=== PATIENT | male | born 1955 | race Caucasian/White ===

== ENCOUNTER 2022-07-07 08:43 | Inpatient (IN) | payer OTHER ==
[~2022-07-07] VITALS: Ht 165.1 cm; Wt 68.0 kg
--- NOTE | 2022-07-07 08:59 | NUR ---
C/O SOB, CHILLS, AND HEADACHE SINCE LAST NIGHT. BREATHING EVEN AND UNLABORED. AMBULATED TO BED WITH STEADY GAIT. AAOX4. CONNECTED TO MONITOR. VITAL SIGNS STABLE. SAFETY PRECAUTIONS IN PLACE. AWAITING MD ORDERS.
--- NOTE | 2022-07-07 09:10 | NUR ---
AT BEDSIDE FOR EVAL
[2022-07-07] MEDS ORDERED: METOPROLOL TARTRATE INJ 5 MG/5 ML AMPUL ONE (09:24)
[2022-07-07] MEDS ORDERED: CARVEDILOL 3.125 MG TABLET ONE (09:24)
[2022-07-07 09:29] LABS: BASOPHILS % (AUTO) 0.5 % (0.0-2.0); EOSINOPHILS % (AUTO) 1.5 % (0.0-6.0); HEMATOCRIT 39 % (39-51); HEMOGLOBIN 12.6 g/dL (13.5-17.5); LYMPHOCYTES # (AUTO) 1.5 K/uL (0.8-4.8); MEAN CORPUSCULAR HGB CONC 33 g/dl (31.0-36.0); MEAN CORPUSCULAR VOLUME 92 fL (80-96); MONOCYTES # (AUTO) 0.3 K/uL (0.1-1.30); MONOCYTES % (AUTO) 4.1 % (2.0-12.0); NEUTROPHILS % (AUTO) 74.9 % (43.0-81.0); PLATELET COUNT (AUTO) 322 K/uL (150-450)
[2022-07-07] MEDS ORDERED: METOPROLOL TARTRATE INJ 5 MG/5 ML AMPUL IV ONE (09:30)
[2022-07-07] MEDS ORDERED: IV NS 0.9% 1,000 ML IV ONE (09:30)
[2022-07-07] MEDS ORDERED: CARVEDILOL 3.125 MG TABLET PO ONE (09:30)
[2022-07-07 09:38] LABS: CALCIUM, SERUM 8.9 mg/dL (8.5-10.1); CARBON DIOXIDE 19 mmol/L (21-32); CHLORIDE 106 mmol/L (98-107); CREATININE 1.6 mg/dL (0.6-1.3); GLUCOSE 171 mg/dL (74-106); POTASSIUM 4.2 mmol/L (3.5-5.1); SODIUM SERUM 135 mmol/L (136-145); UREA NITROGEN, BLOOD 30 mg/dL (7-18)
[2022-07-07] MEDS ORDERED: LISI10TA29 PO (09:42)
[2022-07-07] MEDS ORDERED: CARV3.122 PO (09:42)
--- NOTE | 2022-07-07 09:43 | NUR ---
FLUIDS RUNNING AND MEDICATED ORDERED.
--- NOTE | 2022-07-07 09:45 | NUR ---
PT TAKEN TO CT VIA CARLOS
[2022-07-07 09:52] LABS: ALANINE AMINOTRANSFERASE 48 U/L (12-78); ALBUMIN 3.3 g/dL (3.4-5.0); ALKALINE PHOSPHATASE 102 U/L (46-116); ASPARTATE AMINOTRANSFERASE 18 U/L (15-37); BILIRUBIN,DIRECT 0.3 mg/dL (0.0-0.2); BILIRUBIN,TOTAL 1.1 mg/dL (0.2-1.0); TOTAL PROTEIN, SERUM 7.7 g/dL (6.4-8.2)
--- NOTE | 2022-07-07 10:11 | NUR ---
PT RETURNED FROM CT
--- NOTE | 2022-07-07 10:40 | NUR ---
PT IN ROOM CALM BREATHING IS EVEN AND NON-LABORED. DENIES SOB OR CHEST PAIN. PT CONTUNES TO BE IN UNCONTROLED AFIB.
[2022-07-07] MEDS ORDERED: MIDODRINE HCL (5MG) 5 MG TABLET PO STA (10:54)
[2022-07-07] MEDS ORDERED: DILTIAZEM HCL 50 MG IV IV ONE (11:00)
[2022-07-07] MEDS ORDERED: DILTIAZEM HCL 50 MG IV ONE (11:03)
[2022-07-07] MEDS ORDERED: MIDODRINE HCL (5MG) 5 MG TABLET ONE (11:03)
--- NOTE | 2022-07-07 11:30 | NUR ---
MOVE SHEET SUBMITTED.
--- NOTE | 2022-07-07 11:36 | NUR ---
PT GIVE PERSCRIBED DOSE OF CARDIZEM TO CONTROL A-FIB GIVE WITH A SLOW PUSH. PT VOMITED SHORTLY AFTER WHILE MIDICINE WAS TAKING EFFECT. VITALS STABLIZED A FIB NOW CONTROLED HR94, 97/70, 97% OTSAT, RESP 18 DOES NOT ENDORSE ANY PAIN.
--- NOTE | 2022-07-07 12:17 | NUR ---
covid swab taken and sent to lab.
[2022-07-07] MEDS ORDERED: DILTIAZEM HCL IV 125 MG in IV NS 0.9% 100 ML IV PRN (12:30)
--- NOTE | 2022-07-07 12:47 | NUR ---
Accepted for admissiopn by Dr. Ac Landry MD at [facility]
[2022-07-07] MEDS ORDERED: ACETAMINOPHEN 325 MG TABLET PO PRN (17:30)
[2022-07-07] MEDS ORDERED: MORPHINE SULFATE INJ 2 MG/ML DISP.SYRIN IV PRN (17:30)
[2022-07-07] MEDS ORDERED: HYDROCODONE/APAP 5/325MG TABLET PO PRN (17:30)
[2022-07-07] MEDS ORDERED: Z GUARD REMEDY 4 OZ OINT TP PRN (17:30)
[2022-07-07] MEDS ORDERED: MAG HYDROX/AL HYDROX/SIMETH 30 ML UDC PO PRN (17:30)
[2022-07-07] MEDS ORDERED: MAGNESIUM HYDROXIDE 30 ML UDC PO PRN (17:30)
[2022-07-07] MEDS ORDERED: ENOXAPARIN SODIUM 40 MG/0.4 ML DISP.SYRIN SQ SCH (17:30)
--- NOTE | 2022-07-07 17:47 | NUR ---
HANDOFF REPORT GIVEN TO CARLOS MANUEL RUBY
--- NOTE | 2022-07-07 18:15 | NUR ---
"FLORI NOTES - PAIN MEDICATION | CONDOM CATH | PM CARE PATIENT IS ANXIOUS ABOUT POSSIBLE PAIN DURING PERICARE AND BED CHANGE, GIVEN KETOROLAC 30 MG VIA IV ORDERED, CHANGED CONDOM CATH AND CHANGED REPLACED BEDSHEETS, PATIENT WAS ABLE TO TOLERATE TURNING AND REPOSITIONING Addendum: 07/07/22 at 1935 by SHANEKA WATTS RN WRONG PATIENT"
[2022-07-07 18:25] VITALS: BP 110/66
--- NOTE | 2022-07-07 18:46 | NUR ---
PT TRANSFER TO ROOM 313 ACLS PROTOCAL
[2022-07-07] MEDS ORDERED: AMIODARONE 150 MG in IV D5W 100 ML IV ONE (19:00)
--- NOTE | 2022-07-07 19:05 | NUR ---
RN NOTE 67 YEAR OLD MALE PATIENT CAME FROM AND WAS TRANSMITTED VIA WHEELCHAIR, HAND OFF GIVEN BY JORDON HOROWITZ X4, GHANAIAN SPEAKING, O2 VIA NC AT 2L, NO SOB/DISTRESS NOTED. ON TELE MONITOR WITH CURRENT READING OF UNCONTROLLED AFIB, HR 131. SKIN ASSESSMENT DONE, UROSTOMY NOTED ON LEFT LOWER ABDOMENT. NO OTHER WOUNDS NOTED. SAFETY MEASURES IN PLACE: CALL LIGHT WITHIN REACH, SIDE RAILS UP X2, BED LOCKED AND IN LOWEST POSITION, BED ALARM ON.
--- NOTE | 2022-07-07 19:15 | NUR ---
REHABILITATION INSPECTOR NOTES - PT WAS TRANSFERRED FROM ER BY 2 LOCKSTITCH BACK MAKER VIA [facility], SEEN PT IN BED AT 1824 WITH HOB ELEVATED, PT IS AOX4, MONEGASQUE SPEAKING, NOT IN ANY FORM OF DISTRESS, ON TELE MONITORING WITH CURRENT READING OF UNCONTROLLED AFIB WITH 130S HR, BP-110/66, SPO2 OF 99% WITH O2 @2LPM VIA [place], T- 98.5. SHORTLY AFTER, PHARMACY CALLED TO VERIFY CARDIZEM DRIP, ADVISED WE DONT DO DRIP HERE, CHECKED WITH CHARGE NURSE AND CHANA CAMACHO, GILLIAN- PROVIDER, ORDERED TO TRANSFER THE PATIENT TO [facility] ROOM 110 - TRANSFERRED PT IMMEDIATELY TO [facility] FOLLOWING ACLS PROTOCOL - HAND OFF GIVEN TO NURSE MURRAY AND CHARGE NURSE AT 1900. AND CHARGE NURSE AWARE.
[2022-07-07 20:00] VITALS: BP 114/70
[2022-07-07] MEDS ORDERED: TEMAZEPAM 15 MG CAPSULE PO PRN (20:00)
[2022-07-07] MEDS: AMIODARONE 450 MG in IV D5W 241 ML IV PRN (20:33)
--- NOTE | 2022-07-07 20:35 | NUR ---
RN NOTE PATIENT STARTED ON AMIO DRIP AT 1 MG/MIN X 6 HOURS = 33.3 ML/HR X 6 HOURS.
[2022-07-07] MEDS: ONDANSETRON HCL/PF 4 MG/2 ML VIAL IVP PRN (23:37)
--- NOTE | 2022-07-07 23:55 | NUR ---
RN NOTE PATIENT'S BLOOD PRESSURE IS 80/60 AND HAD EMESIS OF 200 ML. ADMINISTERED ZOFRAN 4MG. MADE AWARE.
--- NOTE | 2022-07-07 23:58 | NUR ---
RN NOTES: PT'S BLOOD PRESSURE 80/60, PULSE-108. NEAL PALM VISITED THE PT. ORDER- NS 500ML BOLUS AND MG 1 GM. NOTED AND CARRIED OUT. HAD ONE EPISODE OF V-TACH. SHOWED TO DR. BILLINGSLEY.
[2022-07-08] VITALS (7 sets, daily range): BP systolic 79–123; BP diastolic 53–71
[2022-07-08] MEDS ORDERED: Magnesium 1GM/D5W 100ML PREMIX 100 ML IV SCH (00:30)
[2022-07-08] MEDS ORDERED: IV NS 0.9% 500 ML IV ONE (00:30)
[2022-07-08 01:21] LABS: CALCIUM, SERUM 8.4 mg/dL (8.5-10.1); CREATININE 1.7 mg/dL (0.6-1.3); MAGNESIUM 2.4 mg/dL (1.8-2.4)
--- NOTE | 2022-07-08 02:36 | NUR ---
RN NOTE TITRATED AMIO DRIP TO 0.5 MG/MIN X 18 HOURS = 16.6 ML/HR X 18 HOURS.
[2022-07-08] MEDS: AMIODARONE 450 MG in IV D5W 241 ML IV PRN (05:06)
[2022-07-08 05:58] LABS: BASOPHILS % (AUTO) 0.1 % (0.0-2.0); HEMATOCRIT 42 % (39-51); HEMOGLOBIN 12.8 g/dL (13.5-17.5); LYMPHOCYTES # (AUTO) 1.2 K/uL (0.8-4.8); LYMPHOCYTES % (AUTO) 10.8 % (20.0-44.0); MEAN CORPUSCULAR HGB CONC 31 g/dl (31.0-36.0); MEAN CORPUSCULAR VOLUME 98 fL (80-96); MONOCYTES # (AUTO) 0.8 K/uL (0.1-1.30); MONOCYTES % (AUTO) 7.3 % (2.0-12.0); NEUTROPHILS # (AUTO) 9.1 K/uL (1.8-8.9); NEUTROPHILS % (AUTO) 81.8 % (43.0-81.0); PLATELET COUNT (AUTO) 252 K/uL (150-450); RED BLOOD CELL COUNT(AUTO) 4.24 MIL/uL (4.5-6.0); WHITE BLOOD COUNT (AUTO) 11.1 K/uL (4.3-11.0)
[2022-07-08 06:32] LABS: CALCIUM, SERUM 8.5 mg/dL (8.5-10.1); CREATININE 2.1 mg/dL (0.6-1.3); MAGNESIUM 2.8 mg/dL (1.8-2.4); PHOSPHORUS 5.7 mg/dL (2.5-4.9)
[2022-07-08 06:38] LABS: THYROID STIMULATING HORMONE 7.907 uIU/mL (0.358-3.74)
[2022-07-08 06:39] LABS: POTASSIUM 6.2 mmol/L (3.5-5.1)
--- NOTE | 2022-07-08 07:30 | NUR ---
ALEKSANDAR RN AM NOTES RECEIVED PT IN BED RESTING. ON 2L NC. BREATHING EVEN AND UNLABORED WITH NO SOB OR SIGNS OF RESPIRATORY DISTRESS. A-FIB 102 ON MONITOR. DENIES CHEST PAIN OR DISCOMFORT. IV ACCESS ON LEFT RIGHT AC 18 WITH AMIODARONE INFUSING @ 16.66 ML/HR, RT AC G 18 IV ACCESS FLUSHES WELL SITE CLEAR. RIGHT ABDOMEN WITH UROSTOMY BAG, PATENT INTACT. INDEPENDENT OF BED MOBILITY, CARDIAC DIET. ALL SAFETY PRECAUTIONS IN PLACE. WILL CONTINUE TO MONITOR THROUGHOUT THE SHIFT.
--- NOTE | 2022-07-08 07:54 | NUR ---
RN CLOSING NOTE PATIENT IN BED, AAO X4, MALAY SPEAKING, O2 VIA NC AT 2L, NO SOB/DISTRESS NOTED. ON TELE MONITOR WITH CURRENT READING OF UNCONTROLLED AFIB, HR 110. IV ACCESS ON LEFT AND RIGHT AC RUNNING AMIO AT 0.5 MG/MIN X 18 HOURS. UROSTOMY NOTED ON LEFT LOWER ABDOMEN, DRAINING CLEAR YELLOW URINE. ALL DUE MEDS WERE GIVEN AND NEEDS ATTENDED. SAFETY MEASURES IN PLACE: CALL LIGHT WITHIN REACH, SIDE RAILS UP X2, BED LOCKED AND IN LOWEST POSITION, BED ALARM ON. ENDORSED TO AM NURSE FOR MARY.
[2022-07-08] MEDS ORDERED: DEXTROSE 50%-WATER 50 ML DISP.SYRIN IVP ONE (08:00)
[2022-07-08] MEDS ORDERED: SODIUM POLYSTYRENE SULFONATE 15 G/60 ML BOTTLE PO ONE ×2 (08:00→18:00)
[2022-07-08] MEDS ORDERED: INSULIN REGULAR, HUMAN 100 UNIT/ML 3 ML VIAL IV ONE (08:00)
[2022-07-08] MEDS ORDERED: ALBUTEROL FS 2.5 MG/3 ML VIAL.NEB NEB ONE (08:00)
[2022-07-08 08:13] LABS: CALCIUM, SERUM 8.6 mg/dL (8.5-10.1); CREATININE 2.3 mg/dL (0.6-1.3); POTASSIUM 5.7 mmol/L (3.5-5.1)
[2022-07-08 08:16] LABS: POTASSIUM 5.3 mmol/L (3.5-5.1)
[2022-07-08] MEDS ORDERED: DILTIAZEM HCL CD 120 MG PO SCH (09:00)
[2022-07-08] MEDS ORDERED: PANTOPRAZOLE 40 MG VIAL IV SCH (09:00)
[2022-07-08] MEDS: FUROSEMIDE 40 MG/4 ML VIAL IV SCH (09:08)
[2022-07-08] MEDS: ONDANSETRON HCL/PF 4 MG/2 ML VIAL IVP PRN (09:09)
[2022-07-08] MEDS: CARVEDILOL 3.125 MG TABLET PO SCH ×2 (09:09→21:00)
[2022-07-08] MEDS: ASPIRIN 81 MG TAB.CHEW PO SCH (09:09)
--- NOTE | 2022-07-08 09:30 | NUR ---
RN OTES DUE MEDS GIVEN
[2022-07-08] MEDS ORDERED: CEFEPIME 1 GM in IV D5W 50 ML IV SCH ×4 (10:00)
--- NOTE | 2022-07-08 10:00 | NUR ---
RN NOTES DR. SIMA Gilliland DC AMIODARONE DEXTER
[2022-07-08] MEDS: ALBUTEROL FS 2.5 MG/0.5 ML VIAL.NEB NEB SCH ×4 (10:06→23:09)
[2022-07-08] MEDS: CEFEPIME 2 GM in IV D5W 100 ML IV SCH (11:31)
[2022-07-08] MEDS ORDERED: IV NS 0.9% 250 ML IV PRN (12:00)
[2022-07-08] MEDS ORDERED: CEFTRIAXONE 1 G in IV D5W 50 ML IV SCH (12:00)
[2022-07-08 12:18] LABS: CALCIUM, SERUM 8.3 mg/dL (8.5-10.1); CREATININE 2.7 mg/dL (0.6-1.3); POTASSIUM 5.8 mmol/L (3.5-5.1)
[2022-07-08] MEDS ORDERED: GUAIFENESIN 300 MG/15 ML UDC PO PRN (14:00)
[2022-07-08] MEDS ORDERED: METOCLOPRAMIDE HCL 10 MG TABLET PO PRN (14:00)
[2022-07-08] MEDS ORDERED: APIXABAN 2.5 MG TABLET PO SCH (14:00)
--- NOTE | 2022-07-08 16:50 | NUR ---
RN NOTES BP 79/53. CHANA CAMACHO NOTIFIED. NNO
[2022-07-08] MEDS ORDERED: ENOXAPARIN SODIUM 40 MG/0.4 ML DISP.SYRIN SQ SCH (17:30)
[2022-07-08 18:11] LABS: ABG OXYGEN SATURATION 91.1 % (92.0-98.5); ABG PCO2 20.1 mmHg (35.0-45.0); ABG PH 7.262 (7.350-7.450); ABG PO2 73.7 mmHg (75.0-100.0); AaDO2 159.7 mmHg; COHb 0.8 % (0.5-1.5); MetHb 0.4 % (0.0-1.5); SITE, ABG Right Radial; VENT MODE, BG 4L NC
--- NOTE | 2022-07-08 18:36 | NUR ---
RN NOTES HOLD BP MEDS PER DR. CAMACHO
[2022-07-08] MEDS: Sodium Bicarbonate 150 MEQ in IV D5W 1,000 ML IV SCH (18:40)
--- NOTE | 2022-07-08 19:24 | NUR ---
ALEKSANDAR RN CLOSING NOTES PT IN BED RESTING. ON 4L NC. BREATHING EVEN AND UNLABORED WITH NO SOB OR SIGNS OF RESPIRATORY DISTRESS. SB TO SR 48 - 59 ON MONITOR. DENIES CHEST PAIN OR DISCOMFORT. IV ACCESS ON LEFT RIGHT AC 18 SALINE LOCK. SLIGHTLY PULLED OUT. WILL REMOVE. RT AC G 18 IV WITH BICARB AT 100 ML/HR INFUSING WELL. SITE CLEAR. RIGHT ABDOMEN WITH UROSTOMY BAG, PATENT INTACT WITH 40 ML OUTPUT. INDEPENDENT OF BED MOBILITY, CARDIAC DIET. ALL SAFETY PRECAUTIONS IN PLACE. PM CARE DONE EARLIER. WILL ENDORSE TO NEXT SHIFT FOR MARY. PATIENT REFUSE MOSTLY HIS ORAL MEDICATIONS, HE VOMITS AND PER HIM UNABLE TO TOLERATE. MD AWARE. FOR RAPID INFLUENZA.
[2022-07-08] MEDS: APIXABAN 2.5 MG TABLET PO SCH (23:57)
[2022-07-09] VITALS: BP 94/73
[2022-07-09 04:00] VITALS: BP 95/68
[2022-07-09] MEDS: ALBUTEROL FS 2.5 MG/0.5 ML VIAL.NEB NEB SCH ×5 (04:03→19:50)
[2022-07-09] MEDS: Sodium Bicarbonate 150 MEQ in IV D5W 1,000 ML IV SCH (04:56)
--- NOTE | 2022-07-09 06:21 | NUR ---
END OF SHIFT, PATIENT IN BED, AWAKE A/O X2 ABLE TO VERBALIZE NEEDS AND CONCERNS, AT 3LPM VIA NC, NO SOB NOTED, WITH OPTIMAL O2 SAT LEVEL, VITAL SIGNS WNL, AFEBRILE, SINUS GENE IN TELE MONITOR, HIGH 40S THE LOWEST, NO SOB/ACUTE DISTRESS DURING THE NIGHT, CONT ON BICARB IVF AT 100ML/HR, PT TOLERATED WELL, UROSTOMY IN PLACE WITH 110ML URINE, NO BM, OTHERWISE NO SIGNIFICANT CHANGE IN CONDITION DURING THE NIGHT, HOB ELEVATED AT ALL TIMES, BED ALARM ON, BED LOCKED AND IN LOWEST POSITION, CALL LIGHT W/I REACH, WILL ENDORSE CONTINUITY OF CARE TO ONCOMING NURSE
--- NOTE | 2022-07-09 07:30 | NUR ---
ALEKSANDAR RN AM NOTES RECEIVED PT IN BED RESTING. ON 2L NC. BREATHING EVEN AND UNLABORED WITH NO SOB OR SIGNS OF RESPIRATORY DISTRESS. SR 61 ON MONITOR. DENIES CHEST PAIN OR DISCOMFORT. IV ACCESS ON LEFT AC DISLODGED. REMOVED. IV ACCESS ON RIGHT AC 18 FLUSHES WELL SITE CLEAR. RIGHT ABDOMEN WITH UROSTOMY BAG, PATENT INTACT. INDEPENDENT OF BED MOBILITY, CARDIAC DIET. STILL UNABLE TO TOLERATED PO MEDS AND FOOD. ALL SAFETY PRECAUTIONS IN PLACE. WILL CONTINUE TO MONITOR THROUGHOUT THE SHIFT.
[2022-07-09 08:00] VITALS: BP 83/61
[2022-07-09 08:58] LABS: BASOPHILS % (AUTO) 0.1 % (0.0-2.0); HEMATOCRIT 34 % (39-51); HEMOGLOBIN 10.6 g/dL (13.5-17.5); LYMPHOCYTES # (AUTO) 1.5 K/uL (0.8-4.8); LYMPHOCYTES % (AUTO) 9.3 % (20.0-44.0); MEAN CORPUSCULAR HGB CONC 32 g/dl (31.0-36.0); MEAN CORPUSCULAR VOLUME 95 fL (80-96); MONOCYTES # (AUTO) 0.9 K/uL (0.1-1.30); MONOCYTES % (AUTO) 5.3 % (2.0-12.0); NEUTROPHILS # (AUTO) 13.7 K/uL (1.8-8.9); NEUTROPHILS % (AUTO) 85.3 % (43.0-81.0); PLATELET COUNT (AUTO) 185 K/uL (150-450); RED BLOOD CELL COUNT(AUTO) 3.55 MIL/uL (4.5-6.0); WHITE BLOOD COUNT (AUTO) 16.1 K/uL (4.3-11.0)
[2022-07-09] MEDS: FUROSEMIDE 40 MG/4 ML VIAL IV SCH (09:00)
[2022-07-09] MEDS: CARVEDILOL 3.125 MG TABLET PO SCH ×2 (09:00→20:51)
[2022-07-09 09:08] LABS: CALCIUM, SERUM 7.2 mg/dL (8.5-10.1); POTASSIUM 4.6 mmol/L (3.5-5.1)
[2022-07-09] MEDS: APIXABAN 2.5 MG TABLET PO SCH ×2 (09:24→20:49)
[2022-07-09] MEDS: ASPIRIN 81 MG TAB.CHEW PO SCH (09:24)
--- NOTE | 2022-07-09 09:30 | NUR ---
RN NOTES UNABLE TO GIVE PO MEDICATIONS. DR. CHANA CAMACHO AWARE. ORDERED CT OF THE NECK. FOR MIDLINE INSERTION.
--- NOTE | 2022-07-09 10:30 | NUR ---
RN NOTES NGT PLACED BY DR. CHANA CAMACHO CT OF THE NECK DONE EARLIER
[2022-07-09] MEDS: CEFEPIME 2 GM in IV D5W 100 ML IV SCH (11:12)
[2022-07-09 12:00] VITALS: BP 97/62
[2022-07-09] MEDS ORDERED: JEVITY 1.2 CAL 1,000 ML BOTTLE NG PRN (12:00)
--- NOTE | 2022-07-09 12:40 | NUR ---
telescope repairer note per dr kennedy ok to order ensure via n g tube
--- NOTE | 2022-07-09 13:02 | NUR ---
RN NOTES GT FEEDING JEVITY 1.2 STARTED AT 20 ML/HR. GOAL OF 65ML/HR FOR 24 HOURS. INCREMENT OF 10-15 ML/HR Q 6 HOURS
--- NOTE | 2022-07-09 14:43 | NUR ---
BEET END SUPERVISOR NOTE RECEIVED PATIENT FROM ECSAR RN , PATIENT IN BED ALERT ORIENTED, ON TELE MONITOR SB HR 59 , IV LISSETT RT AC AND LT AC INTACT AND FLUSHED WELL BED IN LOWEST AND LOCKED POSITION , RT SIDE OF ABDOMEN WITH COLOSTOMY IN PLACE WITH YELLOW COLOSTOMY NOTED, BED IN LOWEST AND LOCKED POSITION , WITH NG TUBE IN PLACE WITH N G TUBE FEEDING ORDERED, WILL CONT TO MONITOR Addendum: 07/09/22 at 1809 by TIMOTEO NEWMAN RN CORRECTION UROSTOMY WITH YELLOW COLOR URINE
--- NOTE | 2022-07-09 15:14 | NUR ---
RN NOTES REPORT GIVEN TO TIMOTEO FITZPATRICK MARY.
[2022-07-09 16:08] VITALS: BP 93/66
--- NOTE | 2022-07-09 16:34 | NUR ---
telephone cleaner note resting comfortably at this time tolerated g tube feeding well ,no nausea or vomiting noted at this time ,keep hob elevated at all time, will cont to monitor closely
[2022-07-09] MEDS ORDERED: ENSURE ENLIVE 237 ML LIQUID (VANILLA) PO SCH (17:00)
--- NOTE | 2022-07-09 17:38 | NUR ---
OVEN DAUBER NOTE SEEN BY DR FERREIRA EXECUTIVE MEETING MANAGER , PATIENT SIGNED CONSENT FOR HD CATH PLACEMENT AND TX
--- NOTE | 2022-07-09 18:27 | NUR ---
BELLSTAND ATTENDANT NOTE PATIENT IN BED , ALERT ORIENTED, ON TELE MONITOR, SB HR 55 AT THIS TIME, RT SIDE OF ABDOMEN WITH UROSTOMY WITH YELLOW COLOR URINE NOTED, LT AC,LISSETT MID LINE ,LT FA HL INTACT AND FLUSHED WELL , WITH NG TUBE FEEDING ORDERED AT 20 ML PER HOUR TOLERATED WELL NO RESIDUAL NOTED, KEEP HOB ELEVATED, ON 2L NC O SOB NOTED AT THIS TIME , CALL LIGHT WITHIN REACH , SAFETY MEASURE IMPLEMENTED, BED IN LOWEST AND LOCKED POSITION
--- NOTE | 2022-07-09 19:36 | NUR ---
RN OPENING NOTES; RECEIVED PT IN BED AWAKED AOX4 ABLE TO MAKE NEEDS KNOWN,ON 4L O2 VIA NC OCLLIN WELL SATING 99%,NO SOB/DISTRESS NOTED,NO COMPLAIN OF PAIN/DISCOMFORT AT THIS TIME,IV ACCESS ON LISSETT ML 18G PATENT AND INTACT,NG TUBE FEEDING JEVITY I.2 20ML/HR COLLIN WELL,NO RESIDUAL NOTED,HOB ELEVATED AT ALL TIME,SAFETY MEASURE IN PLACE,CALL LIGHT WITHIN REACH,WILL CONTINUE TO MONITOR.
[2022-07-09 20:00] VITALS: BP 113/68
--- NOTE | 2022-07-09 22:55 | NUR ---
RN NOTES; PATIENT REFUSED FOR INSERTION OF HEMODIALYSIS,PATIENT SAID TO JANETH THAT IT WASN'T EXPLAINED WELL,JANETH SAID OK.OSORIO CHARGE NURSE WAS TRANSLATING.
[2022-07-10] VITALS: BP 118/63
[2022-07-10] MEDS: ALBUTEROL FS 2.5 MG/0.5 ML VIAL.NEB NEB SCH ×7 (00:15→23:59)
[2022-07-10 04:00] VITALS: BP 105/62
--- NOTE | 2022-07-10 06:22 | NUR ---
RN CLOSING NOTES; PT IN BED AWAKED AOX4 ABLE TO MAKE NEEDS KNOWN,ON 3L O2 VIA NC COLLIN WELL SATING 96%,NO SOB/DISTRESS NOTED,NO COMPLAINED OF PAIN/DISCOMFORT DURING SHIFT,IV ACCESS ON LISSETT ML 18G PATENT AND INTACT,DUE MEDS GIVEN ORDER,ALL NEEDS ATTENDED,NG TUBE FEEDING JEVITY I.2 40ML/HR COLLIN WELL,NO RESIDUAL NOTED,HOB ELEVATED AT ALL TIME,SAFETY MEASURE IN PLACE,CALL LIGHT WITHIN REACH,WILL ENDORSED TO NEXT SHIFT.
[2022-07-10 06:58] LABS: BASOPHILS % (AUTO) 0.2 % (0.0-2.0); EOSINOPHILS % (AUTO) 0.2 % (0.0-6.0); HEMATOCRIT 31 % (39-51); HEMOGLOBIN 10.2 g/dL (13.5-17.5); LYMPHOCYTES # (AUTO) 1.3 K/uL (0.8-4.8); LYMPHOCYTES % (AUTO) 6.4 % (20.0-44.0); MEAN CORPUSCULAR HGB CONC 33 g/dl (31.0-36.0); MEAN CORPUSCULAR VOLUME 93 fL (80-96); MONOCYTES # (AUTO) 0.9 K/uL (0.1-1.30); MONOCYTES % (AUTO) 4.7 % (2.0-12.0); NEUTROPHILS # (AUTO) 17.2 K/uL (1.8-8.9); NEUTROPHILS % (AUTO) 88.5 % (43.0-81.0); PLATELET COUNT (AUTO) 186 K/uL (150-450); RED BLOOD CELL COUNT(AUTO) 3.33 MIL/uL (4.5-6.0); WHITE BLOOD COUNT (AUTO) 19.5 K/uL (4.3-11.0)
[2022-07-10 07:10] LABS: CALCIUM, SERUM 7.2 mg/dL (8.5-10.1); CREATININE 5.9 mg/dL (0.6-1.3); POTASSIUM 4.9 mmol/L (3.5-5.1)
--- NOTE | 2022-07-10 07:43 | NUR ---
RECEP OPENING NOTES RECEIVED PT IN BED AWAKED AOX4 ABLE TO MAKE NEEDS KNOWN,ON 3LPM O2 VIA NC TOLERATING WELL,NO SOB/DISTRESS NOTED,NO COMPLAIN OF PAIN/DISCOMFORT AT THIS TIME, IV ACCESS ON LISSETT ML 18G PATENT AND INTACT, FLUSHES WELL. ON TELE MONITOR WITH SB HR 58, NO C/ OF DIZZINESS OR CHEST PAIN. NG TUBE FEEDING JEVITY I.2 20ML/HR, NO RESIDUAL NOTED,HOB ELEVATED AT ALL TIME,SAFETY MEASURE IN PLACE,CALL LIGHT WITHIN REACH. PLAN OF CARE CONTINUE.
[2022-07-10 08:00] VITALS: BP 106/68
[2022-07-10 08:01] LABS: EOSINOPHILS % (MANUAL) 1 % (0-4); LYMPHOCYTES % (MANUAL) 9 % (16-48); MONOCYTES % (MANUAL) 1 % (0-11.0); NEUTROPHILS % (MANUAL) 88 (42-76)
[2022-07-10 08:02] LABS: MYELOCYTES % 1 % (0-0)
[2022-07-10] MEDS: CARVEDILOL 3.125 MG TABLET PO SCH (08:34)
[2022-07-10] MEDS: PANTOPRAZOLE 40 MG TABLET.DR PO SCH (08:55)
[2022-07-10] MEDS: CEFEPIME 2 GM in IV D5W 100 ML IV SCH (10:33)
[2022-07-10] MEDS ORDERED: JEVITY 1.2 CAL 1,000 ML BOTTLE NG PRN (11:03)
--- NOTE | 2022-07-10 11:30 | NUR ---
SEEN BY ST, PATIENT KEPT ON COUGHING AND SAYING HIS THROAT IS CLOSED, PATIENT FAILED ST EVAL TODAY, WILL TRY AGAIN JOSE ENRIQUE, DR. TOVAR AND CHANA CAFETERIA OR LUNCHROOM CHECKER AWARE.
--- NOTE | 2022-07-10 11:53 | NUR ---
NOTED 02 SAT 85 @6LPM 02 VIA NC, PATIENT NOT IN ANY DISTRESS, NO SOB NOTED, RESPIRATION EVEN AND UNLABORED. PUT PATIENT ON SIMPLE MASK @10L, INFORMED RT AND DR. TOVAR 02 SAT 89-90%. HOB ELEVATED.
[2022-07-10 12:00] VITALS: BP 113/79
--- NOTE | 2022-07-10 12:07 | NUR ---
RECEIVED NEW ORDER FROM DR. TOVAR, STAT ABG, NOTED AND CARRIED OUT.
[2022-07-10] MEDS: MEROPENEM 1 G in IV NS 0.9% 100 ML IV SCH ×2 (12:11→23:01)
--- NOTE | 2022-07-10 13:57 | NUR ---
INFORMED TRUDY PRIMARY SCHOOL TEACHER LIBRARIAN OF PATIENT DESATURATION, WITH NEW ORDER TO HOLD FEEDING, NOTED AND CARRIED OUT.
[2022-07-10 16:00] VITALS: BP 106/66
--- NOTE | 2022-07-10 18:30 | NUR ---
DANIELAL PERSONNEL ARRIVED AND PLACED LIFE VEST.
--- NOTE | 2022-07-10 19:00 | NUR ---
PRINTER SLOTTER FEEDER CLOSING NOTES PT IN BED AWAKE, AOX4 ABLE TO MAKE NEEDS KNOWN,ON 6LPM O2 VIA NC SATING AT 88%, NO SOB/DISTRESS NOTED,NO COMPLAIN OF PAIN/DISCOMFORT AT THIS TIME, IV ACCESS ON LISSETT ML 18G PATENT AND INTACT, FLUSHES WELL. ON TELE MONITOR WITH SB HR 55, NO C/ OF DIZZINESS OR CHEST PAIN. NGT PATENT AND INTACT, NO FEEDING RUNNING. HOB ELEVATED AT ALL TIME,SAFETY MEASURE IN PLACE,CALL LIGHT WITHIN REACH. WILL ENDORSE TO NIGHT NURSE FOR MARY.
--- NOTE | 2022-07-10 19:30 | NUR ---
BRAKE OPERATOR SHEET METAL OPENING NOTES - RECEIVED PATIENT AWAKE, HOB IN HIGH-ROSALES'S. A/O X4, IVORIAN SPEAKING. BREATHING EVEN AND NON-LABORED, ON O2 AT 6LPM VIA NASAL CANULA. NO C/O OF SOB OR AT THIS TIME. NOT IN APPARENT DISTRESS. DENIES PAIN. ON TELE MONITOR READING SINUS BRADYCARDIA AT 54 BPM. HAS LEFT UPPER ARM MIDLINE #18G AND SALINE LOCKED. NO S/S OF INFILTRATION NOTED. HAS NG-TUBE IN THE RIGHT NARES. PATIENT IS WEARING A LIFE VEST. SAFETY MEASURES IN PLACE: BED LOCKED AND IN LOW POSITION, SIDE RAILS UP X2, CALL LIGHT WITHIN REACH. WILL CONTINUE PLAN OF CARE.
[2022-07-10 20:00] VITALS: BP 122/71
[2022-07-11] VITALS (42 sets, daily range): BP systolic 88–121; BP diastolic 60–83
--- NOTE | 2022-07-11 00:38 | NUR ---
0038 Reported by RT patient was desatting to 85% on 6liters NC, placed patient on simple mask at 10 liters and noted O2 saturation at 89-90%. Patient awake and verbally responsive. No respiratory distress noted. Sitting on high fowlers position. Dr. Prince notified of patient's change on condition with order to give Lasix 60mg once and to put patient on hi flow oxygen if O2 saturation drops below 88%. Order noted, RT Elizabeth at bedside and notified of new order.
[2022-07-11] MEDS ORDERED: FUROSEMIDE 40 MG/4 ML VIAL IV ONE (01:00)
--- NOTE | 2022-07-11 01:15 | NUR ---
PLACED ON HI FLOW 40L FIO2 100% PER MD'S ORDER. CHARGE NURSE DUNIA AND RN ASTRID ECHEVARRIA. NO RESPIRATORY DISTRESS NOTED AT THIS TIME. WILL CONTINUE TO MONITOR T/O SHIFT.
--- NOTE | 2022-07-11 02:21 | NUR ---
HD CATHETER PLACED IN RIGHT FEMORAL VEIN. WILL UNDERGO HD NOW.
--- NOTE | 2022-07-11 03:00 | NUR ---
POST ABG RESULT TITRATE FIO2 TO 40%, RN SEPTEMBER AND CHARGE NURSE DUNIA NOTIFIED.
--- NOTE | 2022-07-11 03:00 | NUR ---
0300 ABG result relayed to Dr. Prince with no order given. Patient being dialyzed at this moment. Not in any distress. Verbally responsive and cont. to deny SOB or any pain when asked. BP 106/71, HR 55.
[2022-07-11] MEDS: ALBUTEROL FS 2.5 MG/0.5 ML VIAL.NEB NEB SCH ×6 (03:50→23:29)
--- NOTE | 2022-07-11 05:42 | NUR ---
NOTIFIED DR. KENT THAT PATIENT'S BACK TO A-FIB 130-140 BPM DURING HD AND POST HD. LAST DOSE OF ELIQUIS AND CARVEDILOL WAS ON 07/09/22. ORDERED TO GIVE PRN MORPHINE SULFATE 2MG AND CALL RECORDER GRAVITY PROSPECTING. PER DARREL DUQUE, NO NEED TO CALL DR. GAO SINCE HE WILL COME THIS MORNING. ADMINISTERED PRN MORPHINE FOR NOW AND WILL CONTINUE TO MONITOR PATIENT.
[2022-07-11 06:13] LABS: CALCIUM, SERUM 8.4 mg/dL (8.5-10.1); CREATININE 5.1 mg/dL (0.6-1.3); POTASSIUM 3.8 mmol/L (3.5-5.1)
[2022-07-11 06:27] LABS: BASOPHILS % (AUTO) 0.1 % (0.0-2.0); EOSINOPHILS % (AUTO) 0.8 % (0.0-6.0); HEMATOCRIT 31 % (39-51); HEMOGLOBIN 10.2 g/dL (13.5-17.5); LYMPHOCYTES # (AUTO) 0.8 K/uL (0.8-4.8); LYMPHOCYTES % (AUTO) 3.8 % (20.0-44.0); MEAN CORPUSCULAR HGB CONC 33 g/dl (31.0-36.0); MEAN CORPUSCULAR VOLUME 94 fL (80-96); MONOCYTES # (AUTO) 0.9 K/uL (0.1-1.30); MONOCYTES % (AUTO) 4.4 % (2.0-12.0); NEUTROPHILS # (AUTO) 19.2 K/uL (1.8-8.9); NEUTROPHILS % (AUTO) 90.9 % (43.0-81.0); PLATELET COUNT (AUTO) 194 K/uL (150-450); RED BLOOD CELL COUNT(AUTO) 3.29 MIL/uL (4.5-6.0); WHITE BLOOD COUNT (AUTO) 21.2 K/uL (4.3-11.0)
--- NOTE | 2022-07-11 07:00 | NUR ---
BUFFER INFLATED PAD CLOSING NOTES - PATIENT SLEEPING INTERMITTENTLY, HOB KEPT AT 70 DEGREES AT ALL TIMES. ABLE TO VERBALIZE NEEDS. ON HIGH FLOW NASAL CANULA AT 40 LPM AND 40% FIO2, SATURATING AT 89-90%. DENIES SOB OR . AFEBRILE. ON TELE MONITOR READING UNCONTROLLED A-FIB AT 137 BPM. LEFT UPPER ARM MIDLINE INTACT, PATENT AND FLUSHING. RLQ UROSTOMY DRAINING CLOUDY TEA-COLOR URINE. RIGHT FEMORAL HD CATH DRESSING C/D/I. S/P HD 2000 ML REMOVED. ALL DUE MEDS GIVEN AND NEEDS ATTENDED. SAFETY MEASURES MAINTAINED. WILL ENDORSE TO NEXT SHIFT FOR MARY.
--- NOTE | 2022-07-11 08:04 | NUR ---
DYE HOUSE VAT WORKER NOTE PATIENT IN BED ON TELE MONITOR AFIB HR [address] GAO ALSO PATENT DESATURATED TO 88%, RT AT BEDSIDE CHANCRED TO FI02 AT 40L ON HIGH FLOW, RT SIDE WITH UROSTOMY WITH YELLOW COLOR URINE, ON NPO AT THIS TIME EXEPT MEDS RT FEMORAL HD CATH IN PLACE , RT AC AND RT FA LLT MID LINE IN PLACE , AND FLUSHED WELL , NG TUBE IN PLACE , KEEP HOB ELEVATED AT ALL TIME, CALL LIGHT WITHIN REACH , SEEN BY DR GAO AT BEDSIDE OK TO TRANSFER TO ICU Addendum: 07/11/22 at 0837 by TIMOTEO NEWMAN RN PER DR CHANA SNELL TO START N GTUBE FEEDING
[2022-07-11] MEDS: PANTOPRAZOLE 40 MG TABLET.DR PO SCH (08:40)
[2022-07-11] MEDS ORDERED: AMIODARONE 450 MG in IV D5W 250 ML IV PRN (09:00)
[2022-07-11] MEDS ORDERED: AMIODARONE 150 MG in IV D5W 100 ML IV ONE (09:00)
--- NOTE | 2022-07-11 09:00 | NUR ---
telegraph messenger note \ transferred to icu as ordered by acls protocol , report given to elvin
--- NOTE | 2022-07-11 09:27 | NUR ---
RN NOTES RECEIVED LAB NOTIFICATION OF PROCALCITONIN AT 2.54. DR. CAMACHO (THERAPIST RADIATION) NOTIFIED. Addendum: 07/11/22 at 1450 by JANETH ONEAL RN PER DR. CAMACHO, ID ON BOARD AND WILL MANAGE.
--- NOTE | 2022-07-11 09:50 | NUR ---
rn note gave report to Miles LUIS RN for contuity of care
[2022-07-11] MEDS: AMIODARONE 450 MG in IV D5W 241 ML IV PRN ×2 (10:00→17:00)
--- NOTE | 2022-07-11 10:40 | NUR ---
RN NOTES SPOKE TO DR. CAMACHO. RECEIVED VERBAL ORDERS TO PLACE PT ON NEPHRO AT 20ML/HR WITH 10ML-15ML ADVANCEMENT Q4H TOLERATED WITH GOAL RATE OF 45 ML/HR. DR. CAMACHO IS UNSURE TO WHY PT UNABLE TO PHYSICALLY EAT; WHICH IS WHY THE DECISION TO PLACE NGT WAS MADE. RADIOLOGY STUDY SHOWS NO PHYSICAL ISSUES WITH PT'S SWALLOWING, BUT PT UNABLE TO TOLERATE EATING. ACCORDING TO DR. CAMACHO, POSSIBLE PSYCHOLOGICAL ISSUE RELATED TO EATING. ONCE PT IS STABLIZED, THE DOCTOR WILL ORDER BARIUM SWALLOW EVAL FOR PT.
[2022-07-11 10:46] LABS: ALBUMIN 2.6 g/dL (3.4-5.0); ALKALINE PHOSPHATASE 146 U/L (46-116); BILIRUBIN,DIRECT 7.7 mg/dL (0.0-0.2); BILIRUBIN,TOTAL 20.4 mg/dL (0.2-1.0); TOTAL PROTEIN, SERUM 5.8 g/dL (6.4-8.2)
[2022-07-11] MEDS ORDERED: NEPRO 1,000 ML BOTTLE GT PRN (11:00)
[2022-07-11] MEDS: MEROPENEM 1 G in IV NS 0.9% 100 ML IV SCH ×3 (11:23→23:25)
[2022-07-11] MEDS: IV NS 0.9% 250 ML IV PRN (11:23)
[2022-07-11 11:50] LABS: BAND % (MANUAL) 4 % (0.0-5.0); BASOPHILS % (MANUAL) 0 % (0.0-2.0); EOSINOPHILS % (MANUAL) 3 % (0-4); LYMPHOCYTES % (MANUAL) 11 % (16-48); MONOCYTES % (MANUAL) 4 % (0-11.0); NEUTROPHILS % (MANUAL) 78 (42-76)
[2022-07-11] MEDS ORDERED: PHARMACY TO CHANGE PO MEDS TO GT/NG XX PRN (12:00)
--- NOTE | 2022-07-11 12:00 | NUR ---
RN NOTES NOTIFIED DR. CAMACHO THAT I SPOKE TO THE RADIOLOGIST WHO STATED THAT THE PT HAS LLE DVT BASED ON THE BLE US RESULTS. DR. CAMACHO IS AWARE. NO ORDERS AT THIS TIME.
[2022-07-11] MEDS ORDERED: GUAIFENESIN 300 MG/15 ML UDC GT PRN (12:13)
[2022-07-11] MEDS ORDERED: HYDROCODONE/APAP 5/325MG TABLET GT PRN (12:15)
[2022-07-11] MEDS ORDERED: MAG HYDROX/AL HYDROX/SIMETH 30 ML UDC GT PRN (12:16)
[2022-07-11] MEDS ORDERED: MAGNESIUM HYDROXIDE 30 ML UDC GT PRN (12:16)
[2022-07-11] MEDS ORDERED: TEMAZEPAM 15 MG CAPSULE GT PRN (12:18)
[2022-07-11] MEDS ORDERED: METOCLOPRAMIDE HCL 10 MG/10 ML UDC GT PRN (12:30)
[2022-07-11] MEDS ORDERED: ACETAMINOPHEN 650 MG/20.3 ML UDC PO PRN (12:30)
[2022-07-11] MEDS ORDERED: ACETAMINOPHEN 650 MG/20.3 ML UDC GT PRN (12:30)
[2022-07-11 12:33] LABS: ALBUMIN 2.4 g/dL (3.4-5.0); ALKALINE PHOSPHATASE 136 U/L (46-116); BILIRUBIN,DIRECT 10.9 mg/dL (0.0-0.2); BILIRUBIN,TOTAL 23.6 mg/dL (0.2-1.0); TOTAL PROTEIN, SERUM 5.4 g/dL (6.4-8.2)
--- NOTE | 2022-07-11 16:30 | NUR ---
RN NOTES SPOKE TO DR. CAMACHO. PER THE DOCTOR'S REQUEST, FILLED OUT WEIGHT-BASED HEPARIN DOSING ORDERS AND FAXED TO PHARMACY TO START HEPARIN DRIP W/O BOLUS. PENDING PT, PTT, AND INR RESULTS.
[2022-07-11] MEDS: NEPRO 1,000 ML BOTTLE GT PRN (17:59)
--- NOTE | 2022-07-11 19:37 | NUR ---
RN CLOSING NOTES PT IS COMFORTABLE, NO C/O PAIN AT THIS TIME. PT CURRENTLY ON CONT FEEDING VIA NGT AT 20 ML/HR W/GOAL RATE OF 45 ML/HR TOLERATED. SPOKE TO DR. CAMACHO EARLIER AND NOTIFIED HIM THAT RADIOLOGY HAD CALLED TO NOTIFY THAT PT HAS A LLE DVT; DR. CAMACHO IS AWARE AND HAS CONSULTED WITH DR. GAO WHO RECOMMENDED PT BE PLACED ON CONT HEPARIN DRIP. ORDERED HEPARIN DRIP FOR DR. CAMACHO PER HIS REQUEST. HEPARIN DOSING FORM FILLED OUT AND SENT TO PHARMACY. REPORT GIVEN TO ONCOMING NURSE FOR CONTINUATION OF CARE.
--- NOTE | 2022-07-11 20:00 | NUR ---
RN NOTE RECEIVED PT IN BED, ALERT, AWAKE AND VERBALLY RESPONSIVE. ABLE TO FOLLOW SIMPLE COMMANDS, DENIES PAIN OR DISCOMFORT AT THIS TIME. ON HFNC 60%FIO2, WELL TOLERATED O2 SAT 91%. PT ATTACHED TO BEDSIDE CORE MAKER HELPER, PT WITH A.FIB RVR, HR 120'S, CURRENTLY ON AMIODARONE DRIP DOSE AT 0.5MG. VSS. NGT ON RT NARE NOTED, IN PLACED, CURRENTLY INFUSING NEPRO AT 20ML/HR. ASPIRATION AND SAFETY PRECAUTION IMPLEMENTED. HOB ELEVATED, BED ALARM ON, BED LOCKED AND IN LOWEST POSITION. WILL CONT POC
[2022-07-11] MEDS: HEPARIN INFUSION/D5W 500 ML IV PRN (20:48)
--- NOTE | 2022-07-11 20:50 | NUR ---
RN NOTES HEPARIN DRIP INITIATED ORDERED FOR LLE DVT, RATE AT 1250U/KG, 25ML/HR, WELL TOLERATED. NO S/SX OF ACTIVE BLEEDING. WILL RECHECK PTT AT 07/12 0300. WILL CONT POC.
[2022-07-11 21:36] LABS: ABG BASE EXCESS -11.2 mmol/L; ABG OXYGEN SATURATION 98.5 % (92.0-98.5); ABG PCO2 22.8 mmHg (35.0-45.0); ABG PH 7.358 (7.350-7.450); ABG PO2 166.3 mmHg (75.0-100.0); AaDO2 156.3 mmHg; COHb 1.2 % (0.5-1.5); MetHb 6.7 % (0.0-1.5); O2Hb 90.7 % (94.0-97.0); SITE, ABG Right Radial; VENT MODE, BG VENTURI MASK
--- NOTE | 2022-07-11 22:30 | NUR ---
RN NOTE TF ON HOLD D/T RESIDUAL 160ML, GREENISH IN COLOR. NGTF PREVIOUS RATE AT 20ML/HR, TO INCREASE 10-15ML Q4HRS COLLIN W GOAL RATE 45ML/HR.
[2022-07-12] VITALS (38 sets, daily range): BP systolic 90–134; BP diastolic 52–87
[2022-07-12] MEDS: ALBUTEROL FS 2.5 MG/0.5 ML VIAL.NEB NEB SCH ×6 (03:05→23:30)
[2022-07-12 03:57] LABS: BASOPHILS # (AUTO) 0.1 K/uL (0.0-0.2); BASOPHILS % (AUTO) 0.2 % (0.0-2.0); EOSINOPHILS % (AUTO) 0.9 % (0.0-6.0); HEMATOCRIT 25 % (39-51); HEMOGLOBIN 8.7 g/dL (13.5-17.5); LYMPHOCYTES # (AUTO) 1.6 K/uL (0.8-4.8); LYMPHOCYTES % (AUTO) 6.4 % (20.0-44.0); MEAN CORPUSCULAR HGB CONC 34 g/dl (31.0-36.0); MEAN CORPUSCULAR VOLUME 94 fL (80-96); MONOCYTES # (AUTO) 1.7 K/uL (0.1-1.30); MONOCYTES % (AUTO) 6.9 % (2.0-12.0); NEUTROPHILS # (AUTO) 21.2 K/uL (1.8-8.9); NEUTROPHILS % (AUTO) 85.6 % (43.0-81.0); PLATELET COUNT (AUTO) 207 K/uL (150-450); RED BLOOD CELL COUNT(AUTO) 2.69 MIL/uL (4.5-6.0); WHITE BLOOD COUNT (AUTO) 24.8 K/uL (4.3-11.0)
[2022-07-12 04:19] LABS: ALBUMIN 2.3 g/dL (3.4-5.0); BILIRUBIN,DIRECT 22.9 mg/dL (0.0-0.2); BILIRUBIN,TOTAL 35.1 mg/dL (0.2-1.0); CALCIUM, SERUM 8.2 mg/dL (8.5-10.1); CREATININE 7.2 mg/dL (0.6-1.3); POTASSIUM 4.4 mmol/L (3.5-5.1)
[2022-07-12] MEDS ORDERED: HEPARIN SODIUM, PORCINE 5000 UNITS/1 ML VIAL IV ONE (04:30)
--- NOTE | 2022-07-12 04:30 | NUR ---
RN NOTE 6HRS POST INITIATING HEPARIN DRIP PTT AT 45.4, HEPARIN 2800U BOLUS IVP GIVEN, HEPARIN DRIP INCREASED TO 1400U/KG (28ML/HR) FROM 1250U/KG (25ML/HR) PER PROTOCOL ORDERED. NO S/SX OF ACTIVE BLEEDING NOTED. WILL RECHECK PTT AT 1030 6HRS POST READJUSTMENT.
--- NOTE | 2022-07-12 07:04 | NUR ---
RN NOTE PT AWAKE, VERBALLY RESPONSIVE. DENIES PAIN/DISCOMFORT AT THIS TIME. HFNC DECREASED TO 50%FIO2, O2 SAT 95%. PT REMAINS IN STABLE CONDITION. VSS. REMAINS ON AMIO DRIP DOSE RATE AT 0.5MG, HEPARIN DRIP AT 1400U (28ML/HR) ORDERED. ATTACHED TO BEDSIDE RADIO NEWS ANCHOR, PT WITH A.FIB RVR HR 110-120'S. NGT FEEDING REMAINS ON HOLD D/T RESIDUAL 120ML, GREENISH IN COLOR. NO S/SX OF ACTIVE BLEEDING. PT SKIN REMAINS JAUNDICED. WILL ENDORSE TO AM SHIFT.
--- NOTE | 2022-07-12 07:30 | NUR ---
HIGHWAY TRAFFIC CONTROL TECHNICIAN OPENING NOTES RECEIVED PT AWAKE, ALERT AND VERBALLY RESPONSIVE. DENIES PAIN/DISCOMFORT AT THIS TIME. HFNC DECREASED TO 50%FIO2, O2 SAT 97%,NOTED ON AMIO DRIP DOSE RATE AT 0.5MG, HEPARIN DRIP AT 1400U (28ML/HR) ORDERED. ATTACHED TO BEDSIDE KETTLE FIRER, PT WITH A.NIYA RVR HR 110-120'S. NOTED WITH NGT ON RIGHT NARES, NOTED PATENT AND INTACT, RECEIVED NGT FEEDING REMAINS ON HOLD. NO NAUSEA/VOMITING NOTED. NO S/SX OF ACTIVE BLEEDING. PT SKIN NOTED JAUNDICED. PLAN OF CARE CONTINUE. Addendum: 07/12/22 at 0820 by VERNON RUVALCABA RN NO C/O OF ABDOMINAL PAIN, STOMACH SOFT AND NON DISTENDED.
--- NOTE | 2022-07-12 07:45 | NUR ---
JANETH ARAUZ TRANSLATED TO THE PATIENT WHY THE NGT FEEDING IS OFF DUE TO NGT RESIDUAL, INFORMED PATIENT WE WILL RESUME IT ONCE RESIDUAL IS LESS THAN 100ML. PATIENT CONFIRMED UNDERSTANDING.
--- NOTE | 2022-07-12 08:00 | NUR ---
CHECK FOR GASTRIC RESIDUAL, NOTED WITH 100ML DARK GREEN RESIDUAL, CHANA MENHADEN VESSEL PILOT INFORMED AT THE BEDSIDE, FEEDING CONTINUED TO HOLD, WILL RECHECK GASTRIC RESIDUAL AGAIN LATER.
[2022-07-12] MEDS: PANTOPRAZOLE 40 MG/PACK PACK GT SCH (08:13)
--- NOTE | 2022-07-12 08:35 | NUR ---
RECEIVED NEW ORDER FROM CHANA SPORTS PHYSIOLOGIST, RESUME FEEDING AT 10ML/HR, NOTED AND CARRIED OUT, NGT PLACEMENT CHECKED THRU AUSCULATION.
[2022-07-12] MEDS ORDERED: LISINOPRIL (10MG) 10 MG TABLET GT SCH (09:00)
--- NOTE | 2022-07-12 09:30 | NUR ---
FAMILY AT THE BEDSIDE, RT HINKLE CASING CLEANER TO ANSWER ALL FAMILY MEMBER'S QUESTION, PER PATIENT HE DID NOT EAT FOR 3 DAYS, EXPLAINED TO THE PATIENT AND FAMILY MEMBER THAT PATIENT IS NPO DUE TO PATIENT FAILED ST EVAL, PATIENT IS ON NGT FEEDING RIGHT NOW, FAMILY CONFIRMED UNDERSTANDING.
[2022-07-12] MEDS: DIGOXIN INJ 0.5 MG/2 ML AMPUL IV SCH ×3 (10:48→23:30)
[2022-07-12] MEDS: MEROPENEM 1 G in IV NS 0.9% 100 ML IV SCH ×2 (10:54→23:29)
[2022-07-12] MEDS ORDERED: DIGOXIN INJ 0.5 MG/2 ML AMPUL IV SCH (12:00)
--- NOTE | 2022-07-12 12:00 | NUR ---
PTT RESULT IS 72.6 SECONDS, DECREASED HEPARIN DRIP 2UNITS/KG PER PROTOCOL.
[2022-07-12] MEDS: HEPARIN INFUSION/D5W 500 ML IV PRN (12:42)
[2022-07-12] MEDS ORDERED: VANCOMYCIN 1 GM in IV D5W 250ml IV ONE (16:00)
--- NOTE | 2022-07-12 16:00 | NUR ---
RECEIVED A CALL FROM SYSTEMS DEVELOPMENT MANAGER ABOUT THE [id number], PER SYSTEMS DEVELOPMENT MANAGER THEY DON'T DO THIS LAB TEST AND EVEN THE OUTSIDE LAB, INFORMED CHARGE NURSE JOE.
--- NOTE | 2022-07-12 16:18 | NUR ---
HEMODIALYIS DONE, NO FLUID REMOVAL PER DR. FERREIRA ORDERED.
--- NOTE | 2022-07-12 16:45 | NUR ---
INFORMED MRI DEPARTMENT THAT PATIENT CAN GO TO MRI NOW BECAUSE PATIENT IS DONE WITH THE DIALYSIS, PER MRI DEPARTMENT THEY ARE BUSY RIGHT NOW AND WILL DO THE MRCP WITHIN 45 MINUTES TO ONE HOUR.
--- NOTE | 2022-07-12 17:51 | NUR ---
PATIENT IS OUT FOR MRCP, PATIENT ON NON REBREATHER MASK 95-96%, NO SOB NOTED, ACCOMPANIED BY TUCKER RUBY.
--- NOTE | 2022-07-12 18:45 | NUR ---
[facility] BACK [facility]
--- NOTE | 2022-07-12 18:54 | NUR ---
SALES REPRESENTATIVE [employer] CLOSING NOTES PT AWAKE, ALERT AND VERBALLY RESPONSIVE. DENIES PAIN/DISCOMFORT AT THIS TIME. PATIENT ON HIGHFLOW OXYGEN @50% FIO02 O2 SAT 97-98%, ON HEPARIN DRIP AT 1250ML/HR. ATTACHED TO BEDSIDE GAUGE MACHINE OPERATOR READING AFIB CONTROLLED HR 90'S. NOTED WITH NGT ON RIGHT NARES, NOTED PATENT AND INTACT, PLACEMENT VERIFIED THRU AUSCULATION, NO RESIDUAL NOTED, ON JEVITY 1.2 @10ML/HR, TOLERATING WELL, NO NAUSEA/VOMITING NOTED. NO S/SX OF ACTIVE BLEEDING. PT SKIN NOTED JAUNDICED. RIGHT FEMORAL HD CATH NOTED PATENT AND INTACT, FLUSHES WELL. RIGHT WRIST PIV AND RIGHT AC PIV NOTED PATENT AND INTACT, FLUSHES WELL. LISSETT MIDLINE NOTED PATENT AND INTACT WITH HEPARIN RUNNING. SAFETY MEASURES IN PLACED. CALL LIGHT WITHIN REACH. WILL ENDORSE TO NIGHT NURSE FOR MARY. Addendum: 07/14/22 at 1040 by VERNON RUVALCABA RN CORRECTION: PATIENT ON NEPHRO 1.2
--- NOTE | 2022-07-12 19:10 | NUR ---
Pt is noted in bed alert, responsive but Lethargic with call light in reach and fall precautions in place as report is received from the off going nurse. [email or web address] on the Tele monitor with Digoxin 0.25mcg therapy in progress as ordered, Diminished Lungs sound with High Flow 02 therapy at 50% in progress, Skin dry, warm and intact but Pt skin color is jaundice. Pt is noted with Left Upper Arm Midline and AC IV Access x2 with Right Femoral Hemodialysis Cath noted as Pt is S/P Hemodialysis during the day shift with 2liters out put . Pt is also noted with NG-Tube with Nephro at 10ML/HR for a goal off 45ML/HR, also Pt is noted on a Heparin gtt at 1250unit as awaits 1853 PTT result. Pt care continue as he will be monitor closely while assist as needed al during the shift.
--- NOTE | 2022-07-12 20:25 | NUR ---
Pt remain full code as 1852 PTT is noted 45.5 and Heparin gtt is at 1250unit/25ML/HR and both Pharmacy and DR. Prince are valenzuela and OK to keep at the same rate. Pt care continue as he is been monitor for any S/S off bleeding or change in condition during the shift.
[2022-07-13] VITALS (71 sets, daily range): BP systolic 77–125; BP diastolic 29–91
--- NOTE | 2022-07-13 00:49 | NUR ---
Pt care continue as he remain full code with call light in reach and fall precautions in place with High Flow 02 therapy in progress and still noted A.FIB with 0.25mcg given as ordered at 2330.
[2022-07-13] MEDS: ALBUTEROL FS 2.5 MG/0.5 ML VIAL.NEB NEB SCH ×5 (03:29→20:11)
--- NOTE | 2022-07-13 04:44 | NUR ---
Pt is sleeing after AM care with call light in reach and fall precautions in place as pt remain on Hephrin gtt at 1250 and Tube feeding at 10ML/hr. Pt care continue as he is been monitor closely.
[2022-07-13 05:09] LABS: BASOPHILS # (AUTO) 0.1 K/uL (0.0-0.2); BASOPHILS % (AUTO) 0.3 % (0.0-2.0); EOSINOPHILS % (AUTO) 2.8 % (0.0-6.0); HEMATOCRIT 22 % (39-51); HEMOGLOBIN 7.5 g/dL (13.5-17.5); LYMPHOCYTES # (AUTO) 4.7 K/uL (0.8-4.8); LYMPHOCYTES % (AUTO) 16.3 % (20.0-44.0); MEAN CORPUSCULAR HGB CONC 34 g/dl (31.0-36.0); MEAN CORPUSCULAR VOLUME 97 fL (80-96); MONOCYTES # (AUTO) 2.1 K/uL (0.1-1.30); MONOCYTES % (AUTO) 7.4 % (2.0-12.0); NEUTROPHILS # (AUTO) 21.1 K/uL (1.8-8.9); NEUTROPHILS % (AUTO) 73.2 % (43.0-81.0); PLATELET COUNT (AUTO) 197 K/uL (150-450); RED BLOOD CELL COUNT(AUTO) 2.32 MIL/uL (4.5-6.0); WHITE BLOOD COUNT (AUTO) 28.8 K/uL (4.3-11.0)
[2022-07-13 05:33] LABS: CALCIUM, SERUM 8.3 mg/dL (8.5-10.1); CARBON DIOXIDE 24 mmol/L (21-32); CHLORIDE 102 mmol/L (98-107); CREATININE 6.7 mg/dL (0.6-1.3); GLUCOSE 76 mg/dL (74-106); MAGNESIUM 2.1 mg/dL (1.8-2.4); PHOSPHORUS 4.7 mg/dL (2.5-4.9); POTASSIUM 4.1 mmol/L (3.5-5.1); SODIUM SERUM 137 mmol/L (136-145)
[2022-07-13 05:56] LABS: ALANINE AMINOTRANSFERASE 2230 U/L (12-78); BILIRUBIN,TOTAL 40.8 mg/dL (0.2-1.0)
[2022-07-13 06:05] LABS: UREA NITROGEN, BLOOD 90 mg/dL (7-18)
[2022-07-13] MEDS: PANTOPRAZOLE 40 MG/PACK PACK GT SCH (06:06)
--- NOTE | 2022-07-13 07:18 | NUR ---
Pt care continue as report is given to the AM receiving Nurse.
[2022-07-13] MEDS: HEPARIN INFUSION/D5W 500 ML IV PRN (08:05)
[2022-07-13 08:13] LABS: ALANINE AMINOTRANSFERASE 2281 U/L (12-78); ALBUMIN 2.1 g/dL (3.4-5.0); BILIRUBIN,DIRECT 28.9 mg/dL (0.0-0.2); BILIRUBIN,TOTAL 43.2 mg/dL (0.2-1.0); TOTAL PROTEIN, SERUM 4.9 g/dL (6.4-8.2)
--- NOTE | 2022-07-13 08:14 | NUR ---
RN GERIATRIC OPENING NOTES PT AWAKE, ALERT AND VERBALLY RESPONSIVE. DENIES PAIN/DISCOMFORT AT THIS TIME. PATIENT ON HIGHFLOW OXYGEN @50% FIO2, NO SOB NOTED, RESPIRATION EVEN AND UNLABORED, NOT IN ANY DISTRESS. CONTINUED ON HEPARIN DRIP AT 1250UNITS ATTACHED TO BEDSIDE ASSISTANT NEWS DIRECTOR. NOTED WITH NGT ON RIGHT NARES, NOTED PATENT AND INTACT, PLACEMENT VERIFIED THRU AUSCULATION, NO RESIDUAL NOTED, ON JEVITY 1.2 @10ML/HR, TOLERATING WELL, NO NAUSEA/VOMITING NOTED. , INCREASED TO 15ML/HR. NO S/SX OF ACTIVE BLEEDING. PT SKIN STILL NOTED JAUNDICED. RIGHT FEMORAL HD CATH NOTED PATENT AND INTACT, DRESSING C/D/I, FLUSHES WELL, WITH HEPARIN DRIP RUNNING ORDERED. RIGHT WRIST PIV AND RIGHT AC PIV NOTED PATENT AND INTACT, FLUSHES WELL. LISSETT MIDLINE NOTED PATENT AND INTACT, FLUSHES WELL, WITH SALINE TKO. UROSTOMY BAG NOTED INTACT. SAFETY MEASURES IN PLACED. CALL LIGHT WITHIN REACH. PLAN OF CARE CONTINUE. Addendum: 07/14/22 at 1039 by VERNON RUVALCABA RN CORRECTION NEPHRO 1.2 FEEDING
[2022-07-13 08:18] LABS: SERUM AMMONIA 10 umol/L (11-32)
--- NOTE | 2022-07-13 09:15 | NUR ---
PATIENT IS HAVING HEMODIALYSIS AT THIS MOMENT.
[2022-07-13] MEDS ORDERED: ALBUMIN 25% 25 GM in PREMIX 1 EA IV PRN (09:30)
[2022-07-13] MEDS: MEROPENEM 1 G in IV NS 0.9% 100 ML IV SCH ×2 (11:22→23:10)
--- NOTE | 2022-07-13 11:30 | NUR ---
HEMODIALYSIS DONE, NO FLUID WAS TAKEN OUT.
--- NOTE | 2022-07-13 12:00 | NUR ---
NO NAUSEA/VOMITING NOTED, NO GASTRIC RESIDUAL NOTED, INCREASED FEEDING TO 15ML/HR. Addendum: 07/13/22 at 1520 by VERNON RUVALCABA RN CORRECTION 20ML/HR.
--- NOTE | 2022-07-13 12:00 | NUR ---
ULTRASOUND OF THE ABDOMEN IS BEING DONE AT THIS MOMENT.
[2022-07-13] MEDS: VANCOMYCIN POST DIALYSIS 500MG IV PRN ×2 (14:59)
--- NOTE | 2022-07-13 16:43 | NUR ---
PER PASTORA VÁZQUEZ NEXT OF KIN OF THE PATIENT, I CAN GIVE INFORMATION ABOUT THE PATIENT TO [facility], PHONE NO IS [phone], PER [facility], THEY WANT A UPDATE REGARDING THE PATIENT, PER PATIENT AND OTHER FAMILY MEMBER NO ONE IS GIVING THEM INFORMATION IN NEPALI ABOUT THE PATIENT, AND PER PATIENT NO ONE EXPLAINED ABOUT HIS CONDITION IN NEPALI, INFORMED CHANA FRENCH.
--- NOTE | 2022-07-13 16:45 | NUR ---
INFORMED [facility] THAT WHENEVER CHANA CYBER SECURITY INSTRUCTOR TALKED TO THE PATIENT WE USED A ESTONIAN SPEAKING RN AND RT TO TRANSLATE. WHEN LUIS VISITED, I ASKED MANAN ARAUZ TO TRANSLATE TO ANSWERED ALL THERE QUESTIONS.
--- NOTE | 2022-07-13 17:00 | NUR ---
MELISSA RT CHANGED PATIENT FROM HI FLOW NASAL CANNULA TO SIMPLE MASK AT 8L, PATIENT TOLERATING WELL, NO SOB NOTED, NOT IN ANY DISTRESS.
[2022-07-13] MEDS: NEPRO 1,000 ML BOTTLE GT PRN (17:02)
--- NOTE | 2022-07-13 17:36 | NUR ---
CHANA CRATING AND MOVING ESTIMATOR AT THE BEDSIDE, WITH NIKO RUBY [place] SPEAKING REGISTERED NURSE PETROLEUM TRANSPORT DRIVER, CHANA CRATING AND MOVING ESTIMATOR UPDATE THE PATIENT ABOUT HIS HEALTH AND PLAN, CHANA CRATING AND MOVING ESTIMATOR ANSWER ALL PATIENT'S QUESTION WITH NIKO PETROLEUM TRANSPORT DRIVER, PATIENT CONFIRMED UNDERSTANDING. PER PATIENT HE DOES NOT WANT HIS OR ANYONE EXCEPT JULIO AND PASTORA TO KNOW ABOUT HIS CONDITION. HE STRONGLY SAID THAT HE DOESN'T WANT [facility] OR OTHER PEOPLE TO GIVE ANY INFORMATION ABOUT HIS CONDITION.
--- NOTE | 2022-07-13 17:39 | NUR ---
CHANA CULVERT INSTALLER AT THE BEDSIDE, PER CHANA CULVERT INSTALLER CAN INCREASED FEEDING TO 30ML/HR, NOTED AND CARRIED OUT.
[2022-07-13] MEDS: IV NS 0.9% 250 ML IV PRN (18:20)
--- NOTE | 2022-07-13 18:56 | NUR ---
COOKER MEAL CLOSING NOTES PT AWAKE, ALERT AND VERBALLY RESPONSIVE. DENIES PAIN/DISCOMFORT AT THIS TIME. PATIENT ON SIMPLE MASK @8L SAT 98-100%, NO SOB NOTED, RESPIRATION EVEN AND UNLABORED, NOT IN ANY DISTRESS. CONTINUED ON HEPARIN DRIP AT 1250UNITS ATTACHED TO BEDSIDE TAIL RIPPER, WITH CONTROLLED AFIB READING HR 90'S. NOTED WITH NGT ON RIGHT NARES, NOTED PATENT AND INTACT, PLACEMENT VERIFIED THRU AUSCULATION, NO RESIDUAL NOTED, ON JEVITY 1.2 @30ML/HR, TOLERATING WELL, NO NAUSEA/VOMITING NOTED. NO S/SX OF ACTIVE BLEEDING. PT SKIN STILL NOTED JAUNDICED. RIGHT FEMORAL HD CATH NOTED PATENT AND INTACT, DRESSING C/D/I, FLUSHES WELLLM RIGHT WRIST PIV, FLUSHES WELL. LISSETT MIDLINE NOTED PATENT AND INTACT, FLUSHES WELL. UROSTOMY BAG NOTED INTACT WITH CLEAR DARK URINE. SAFETY MEASURES IN PLACED. CALL LIGHT WITHIN REACH. WILL ENDORSED TO NIGHT NURSE FOR MARY. Addendum: 07/14/22 at 1039 by VERNON RUVALCABA RN CORRECTION NEPHRO 1.2 FEEDING
--- NOTE | 2022-07-13 19:15 | NUR ---
Pt is noted in bed alert, responsive with call light in reach and fall precautions in place as report is received from the off going nurse. Macie.FIB on the Tele monitor , Diminished Lungs sound with Facemask 02 therapy at 15Liters therapy in progress, Skin dry, warm and intact but Pt skin color is jaundice. Pt is noted with Left Upper Arm Midline , AC IV Access x2 with Right Femoral Hemodialysis Cath noted for Hemodialysis . Pt is also noted with NG-Tube with Nephro at 30ML/HR now for a goal off 45ML/HR, also Pt remain on the Heparin gtt at 1250unit with next PTT in AM. Pt care continue as he will be monitor closely while assist as needed all during the shift.
--- NOTE | 2022-07-13 23:44 | NUR ---
Pt care continue as he remain full code with call light in reach and fall precautions in place with Facemask 8Liters 02 therapy in progress and still noted A.FIB with Heparin gtt at 1250unit/25ML therapy in progress
[2022-07-14] VITALS (52 sets, daily range): BP systolic 71–127; BP diastolic 40–87
[2022-07-14] MEDS: ALBUTEROL FS 2.5 MG/0.5 ML VIAL.NEB NEB SCH ×7 (00:04→23:54)
[2022-07-14] MEDS: HEPARIN INFUSION/D5W 500 ML IV PRN (04:25)
--- NOTE | 2022-07-14 04:50 | NUR ---
Pt is sleeping after AM care with call light in reach and fall precautions in place as pt remain on Heparin gtt at 1250 and Tube feeding at 40ML/hr. Pt care continue as he is been monitor closely as awaits next PTT LAB work result.
[2022-07-14 05:23] LABS: BASOPHILS # (AUTO) 0.1 K/uL (0.0-0.2); BASOPHILS % (AUTO) 0.6 % (0.0-2.0); EOSINOPHILS % (AUTO) 2.4 % (0.0-6.0); HEMATOCRIT 21 % (39-51); LYMPHOCYTES # (AUTO) 2.8 K/uL (0.8-4.8); LYMPHOCYTES % (AUTO) 11.7 % (20.0-44.0); MEAN CORPUSCULAR HGB CONC 33 g/dl (31.0-36.0); MEAN CORPUSCULAR VOLUME 98 fL (80-96); MONOCYTES # (AUTO) 2.6 K/uL (0.1-1.30); NEUTROPHILS # (AUTO) 17.8 K/uL (1.8-8.9); NEUTROPHILS % (AUTO) 74.3 % (43.0-81.0); PLATELET COUNT (AUTO) 168 K/uL (150-450); WHITE BLOOD COUNT (AUTO) 23.9 K/uL (4.3-11.0)
[2022-07-14 05:33] LABS: HEMOGLOBIN 6.9 g/dL (13.5-17.5)
[2022-07-14 05:45] LABS: CALCIUM, SERUM 8.6 mg/dL (8.5-10.1); CREATININE 5.6 mg/dL (0.6-1.3)
[2022-07-14] MEDS: PANTOPRAZOLE 40 MG/PACK PACK GT SCH ×2 (06:27→06:35)
--- NOTE | 2022-07-14 06:32 | NUR ---
Pt remain alert, responsive as LAB called in with LAB PTT 82.7 and Heprin gtt rate is change from 1250units to 1110units per protocols, also H/H is 6.9/21, is made aware with 1unit off PRBC order. Pt care continue.
--- NOTE | 2022-07-14 07:07 | NUR ---
Pt care continue as report is given to the AM receiving nurse.
--- NOTE | 2022-07-14 08:00 | NUR ---
RT HINKLE CHANGED PATIENT FROM SIMPLE MASK TO NASAL CANNULA AT 6LPM 02, NO SOB NOTED, RESPIRATION EVEN AND UNLABORED, NOT IN ANY DISTRESS SATING AT 100%.
[2022-07-14 08:37] LABS: BAND % (MANUAL) 5 % (0.0-5.0); LYMPHOCYTES % (MANUAL) 16 % (16-48); MONOCYTES % (MANUAL) 12 % (0-11.0); MYELOCYTES % 2 % (0-0); NEUTROPHILS % (MANUAL) 65 (42-76)
--- NOTE | 2022-07-14 08:59 | NUR ---
MANAN ARAUZ AT THE BEDSIDE, MARSHALLESE SPEAKING, INFORMED PATIENT THAT HE WILL NEED BLOOD TRANSFUSION AND WILL GIVE HIM 1 PACK RBC, PATIENT CONFIRMED UNDERSTANDING, EXPLAINED WHY HE NEEDING THE BLOOD TRANSFUSION, CONFIRMED UNDERSTANDING, NO OTHER QUESTIONS, PATIENT SIGNED CONSENT FOR BLOOD TRANSFUSION. Addendum: 07/14/22 at 0901 by VERNON RUVALCABA RN TIME IS AT 0800
--- NOTE | 2022-07-14 09:00 | NUR ---
PATIENT NOTED ON NEPHRO 1.2 @40ML, PATIENT TOLERATING FEEDING, NO RESIDUAL NOTED, INCREASED FEEDING TO 45ML/HR.
--- NOTE | 2022-07-14 10:00 | NUR ---
HEMODIALYSIS IS BEING DONE AT THIS MOMENT.
--- NOTE | 2022-07-14 10:20 | NUR ---
CALLED BLOOD BANK, PER CLS, THEY ARE STILL WORKING ON IT. WILL FOLLOW UP AGAIN LATER.
--- NOTE | 2022-07-14 10:31 | NUR ---
COIN PURSE ASSEMBLER OPENING NOTES RECEIVED PT SLEEPING COMFORTABLY IN BED, ALERT AND VERBALLY RESPONSIVE WHEN AWAKEN, DENIES PAIN/DISCOMFORT AT THIS TIME. PATIENT ON SIMPLE MASK @8L , 02 SAT 98-100%, NO SOB NOTED, RESPIRATION EVEN AND UNLABORED, NOT IN ANY DISTRESS. PATIENT NOTED ON HEPARIN DRIP AT 1100UNITS ATTACHED TO BEDSIDE CREDIT CONSULTANT, WITH CONTROLLED AFIB READING HR 90'S. NOTED WITH NGT ON RIGHT NARES, NOTED PATENT AND INTACT, PLACEMENT VERIFIED THRU AUSCULATION, NO RESIDUAL NOTED, NOTED ON NEPHRO 1.2 NOTED RUNNING @40ML/HR, TOLERATING WELL, NO NAUSEA/VOMITING NOTED. NO S/SX OF ACTIVE BLEEDING. PT SKIN STILL NOTED JAUNDICED. RIGHT FEMORAL HD CATH NOTED PATENT AND INTACT, DRESSING C/D/I, FLUSHES WELL. NOTED WITH RIGHT WRIST PIV, FLUSHES WELL. LISSETT MIDLINE NOTED PATENT AND INTACT, FLUSHES WELL. UROSTOMY BAG NOTED INTACT WITH CLEAR DARK URINE. SAFETY MEASURES IN PLACED. CALL LIGHT WITHIN REACH. PLAN OF CARE CONTINUE. Addendum: 07/14/22 at 1036 by VERNON RUVALCABA RN RECEIVED AT 0710H
--- NOTE | 2022-07-14 10:42 | NUR ---
PATIENT HAVE VISITORS, ABHISHEK ARAUZ ENGLISH SPEAKING FUEL ATTENDANT, INFORMED VISITORS THAT THEY NEED TO COME BACK AFTER HEMODIALYSIS. VISITORS CONFIRMED UNDERSTANDING.
[2022-07-14] MEDS: MEROPENEM 1 G in IV NS 0.9% 100 ML IV SCH ×2 (10:48→23:50)
--- NOTE | 2022-07-14 13:00 | NUR ---
HEMODIALYSIS DONE, NO FLUIDS WAS REMOVED.
--- NOTE | 2022-07-14 13:00 | NUR ---
DR. LUNA DRAPERY ESTIMATOR SEEN BY AT THE BEDSIDE, WITH ORDER TO TITRATE PATIENT 02, INFORMED ABHISHEK ARAUZ. RT TITRATE 02 FROM 6L TO 4L, NO SOB NOTED. NOT IN ANY DISTRESS.
--- NOTE | 2022-07-14 14:15 | NUR ---
@1350 RECEIVED PTT RESULTS: 81.7, DECREASED HEPARIN DRIP PER FACILITY PROTOCOL, FROM 1100UNITS TO 950UNITS/KG OR 19ML/HR, NO S/SX OF BLEEDING NOTED. STARTED BLOOD TRANSFUSION, CHECKED VITAL SIGNS PER HOSPITAL PROTOCOL. Addendum: 07/14/22 at 1430 by VERNON RUVALCABA RN NEXT PTT AT 2000H
--- NOTE | 2022-07-14 15:00 | NUR ---
ABHISHEK RT TITRATED 02 FROM 4L TO 2L 02 VIA NC, PATIENT TOLERATING, NO SOB NOTED, RESPIRATION EVEN AND UNLABORED, NOT IN ANY DISTRESS, 02 SAT 100%,
--- NOTE | 2022-07-14 17:05 | NUR ---
CORRECTION: BLOOD TRANSFUSION FINISHED AT 1700H.
[2022-07-14] MEDS: VANCOMYCIN POST DIALYSIS 500MG IV PRN ×2 (17:16)
[2022-07-14] MEDS: NEPRO 1,000 ML BOTTLE GT PRN (17:28)
--- NOTE | 2022-07-14 18:00 | NUR ---
PATIENT ALERT AND RESPONSIVE, FAMILY AT THE BEDSIDE, PATIENT ON 2LPM 02 VIA NC, NO SOB NOTED, RESPIRATION EVEN AND UNLABORED, NOT IN ANY DISTRESS. PATIENT NOTED ON HEPARIN DRIP AT 950UNITS,NEXT PTT AT 2000H. ATTACHED TO BEDSIDE CHAIN TESTING MACHINE OPERATOR, WITH CONTROLLED AFIB READING HR 90'S. NOTED WITH NGT ON RIGHT NARES, NOTED PATENT AND INTACT, PLACEMENT VERIFIED THRU AUSCULATION, NO RESIDUAL NOTED, NOTED ON NEPHRO 1.2 NOTED RUNNING @45ML/HR, TOLERATING WELL, NO NAUSEA/VOMITING NOTED. NO S/SX OF ACTIVE BLEEDING. PT SKIN STILL NOTED JAUNDICED. RIGHT FEMORAL HD CATH NOTED PATENT AND INTACT, DRESSING C/D/I, FLUSHES WELL. NOTED WITH RIGHT WRIST PIV, FLUSHES WELL. LISSETT MIDLINE NOTED PATENT AND INTACT, FLUSHES WELL. UROSTOMY BAG CHANGED TO A NEW BAG, NOTED WITH CLEAR DARK URINE. SAFETY MEASURES IN PLACED. CALL LIGHT WITHIN REACH. AWAITING TRANSFER TO [facility].
--- NOTE | 2022-07-14 18:50 | NUR ---
TRANSFERRED PATIENT TO [facility] ROOM 101 USED ACLS, GAVE REPORT TO TERRI RUBY.
--- NOTE | 2022-07-14 18:55 | NUR ---
RN NOTE PATIENT TRANSFERRED FROM ICU TO ROOM 101, HANDOFF REPORT GIVEN BY VERNON PEREZ RN. RECEIVED PATIENT WITH FAMILY AT BEDSIDE, AAO X4, HAS GENERALIZED JAUNDICE, O2 VIA NC AT 2L, NO SOB/DISTRESS NOTED. ON TELE MONITOR WITH UNCONTROLLED AFIB AT 103. IV ACCESS ON LISSETT MIDLINE RUNNING HEPARIN DRIP AT 950 UNITS AND RIGHT WRIST PIV S/L. RIGHT FEMORAL HD CATH NOTED PATENT AND INTACT, DRESSING C/D/I. NGT NOTED ON RIGHT NARE, INTACT AND PATENT, NEPRO RUNNING 45 ML/HR, NO RESIDUAL NOTED. UROSTOMY BAG ON RIGHT ABDOMEN WITH TEA COLORED URINE. SAFETY MEASURES IN PLACE: BED LOCKED AND IN LOWEST POSITION, SIDE RAILS UP X3, CALL LIGHT WITHIN REACH.
[2022-07-14] MEDS ORDERED: EPOETIN ALFA-EPBX 4,000 UNIT/ML VIAL IV SCH (19:00)
[2022-07-14] MEDS: IV NS 0.9% 250 ML IV PRN (19:55)
--- NOTE | 2022-07-14 20:47 | NUR ---
RN NOTE PATIENT APTT FOR 1999 IS 63.3, NO CHANGE PER PROTOCOL ON HEPARIN DOSE AT 950 UNITS.
[2022-07-15] VITALS: BP 116/69
[2022-07-15 04:00] VITALS: BP 105/72
[2022-07-15] MEDS: ALBUTEROL FS 2.5 MG/0.5 ML VIAL.NEB NEB SCH ×6 (04:26→23:30)
[2022-07-15 05:31] LABS: BASOPHILS # (AUTO) 0.1 K/uL (0.0-0.2); BASOPHILS % (AUTO) 0.8 % (0.0-2.0); EOSINOPHILS % (AUTO) 1.6 % (0.0-6.0); HEMATOCRIT 27 % (39-51); HEMOGLOBIN 8.8 g/dL (13.5-17.5); LYMPHOCYTES # (AUTO) 5.2 K/uL (0.8-4.8); LYMPHOCYTES % (AUTO) 28.6 % (20.0-44.0); MEAN CORPUSCULAR HGB CONC 33 g/dl (31.0-36.0); MEAN CORPUSCULAR VOLUME 99 fL (80-96); MONOCYTES # (AUTO) 1.7 K/uL (0.1-1.30); MONOCYTES % (AUTO) 9.4 % (2.0-12.0); NEUTROPHILS # (AUTO) 10.9 K/uL (1.8-8.9); NEUTROPHILS % (AUTO) 59.6 % (43.0-81.0); PLATELET COUNT (AUTO) 127 K/uL (150-450); RED BLOOD CELL COUNT(AUTO) 2.73 MIL/uL (4.5-6.0); WHITE BLOOD COUNT (AUTO) 18.2 K/uL (4.3-11.0)
[2022-07-15] MEDS: HEPARIN INFUSION/D5W 500 ML IV PRN ×2 (05:49→06:32)
[2022-07-15 05:52] LABS: BILIRUBIN,TOTAL 32.7 mg/dL (0.2-1.0); CALCIUM, SERUM 8.3 mg/dL (8.5-10.1); CREATININE 5.1 mg/dL (0.6-1.3); POTASSIUM 4.2 mmol/L (3.5-5.1); TOTAL PROTEIN, SERUM 5.1 g/dL (6.4-8.2)
--- NOTE | 2022-07-15 07:11 | NUR ---
RN CLOSING NOTE PATIENT IN BED, AAO X4, HAS GENERALIZED JAUNDICE, O2 VIA NC AT 2L, NO SOB/DISTRESS NOTED. ON TELE MONITOR WITH UNCONTROLLED AFIB AT 115. IV ACCESS ON LISSETT MIDLINE RUNNING HEPARIN DRIP AT 950 UNITS AND RIGHT WRIST PIV S/L. RIGHT FEMORAL HD CATH NOTED PATENT AND INTACT, DRESSING C/D/I. NGT NOTED ON RIGHT NARE, INTACT AND PATENT, NEPRO RUNNING 45 ML/HR, NO RESIDUAL NOTED. UROSTOMY BAG ON RIGHT ABDOMEN WITH TEA COLORED URINE. ALL DUE MEDS WERE GIVEN AND NEEDS ATTENDED. SAFETY MEASURES IN PLACE: BED LOCKED AND IN LOWEST POSITION, SIDE RAILS UP X3, CALL LIGHT WITHIN REACH. ENDORSED TO AM NURSE FOR MARY
--- NOTE | 2022-07-15 07:20 | NUR ---
RN [facility] TELE OPENING NOTES: RECEIVED PATIENT IN BED, AWAKE, ALERT ORIENTED X 4, BRUNEIAN SPEAKING PATIENT BUT UNDERSTANDS MINIMAL GREEK. PATIENT ON A-FIB WITH HR OF 113 PER TELE MONITOR. NO SOB NOTED, BREATHING EVEN AND UNLABORED. ON OXYGEN @ 2L/MIN VIA N/C. HAS IV ACCESS ON LISSETT MIDLINE RUNNING WITH HEPARIN DRIP AT 950 UNITS/HR, SITE PATENT WITH NO /S INFILTRATION NOTED. ALSO HAS SALINE LOCK ON RIGHT WRIST, PATENT AND FLUSHES WELL. FEMORAL HD CATH IN PLACE, INTACT, DRESSING CLEAN AND DRY. NGT ON RIGHT NARE, INTACT, IN PLACE AND PATENT, NEPRO RUNNING 45 ML/HR, NO RESIDUAL NOTED. UROSTOMY BAG IN PLACE ON RIGHT ABDOMEN WITH TEA COLORED URINE. SAFETY MEASURES IN PLACE: BED LOCKED AND IN LOWEST POSITION WITH BED ALARM ON. SIDE RAILS UP X3, CALL LIGHT WITHIN REACH. WILL CONTINUE TO MONITOR PATIENT THROUGHOUT SHIFT.
[2022-07-15] MEDS: PANTOPRAZOLE 40 MG/PACK PACK GT SCH (07:49)
--- NOTE | 2022-07-15 07:49 | NUR ---
PATIENT WAS NOTED TO HAVE AN ORDER FOR HIDA SCAN. WITNESSED PATIENT'S CONSENT FOR THE PROCEDURE. HELD PATIENT'S FEEDING FOR NOW IN PREPARATION FOR THE TEST AND FOR THE PATIENT TO REMAIN NPO BEFORE AWAKE OVERNIGHT COUNSELOR TIME AT 12 NOON TODAY. PATIENT INFORMED AND AGREED AND UNDERSTOOD.
[2022-07-15 08:00] VITALS: BP 115/81
[2022-07-15] MEDS: MEROPENEM 500 MG in IV NS 0.9% 50 ML IV SCH (11:26)
[2022-07-15] MEDS ORDERED: MEROPENEM 0.5 G in IV NS 0.9% 100 ML IV SCH (11:30)
--- NOTE | 2022-07-15 11:53 | NUR ---
PATIENT'S FAMILY CAME TO VISIT THE PATIENT, UPDATED OF THE PATIENT'S CONDITION.
[2022-07-15 12:00] VITALS: BP 100/69
--- NOTE | 2022-07-15 12:10 | NUR ---
PATIENT LEFT FOR HIS HIDA SCAN VIA HOSPITAL BED. PATIENT LEFT IN NO ACUTE DISTRESS
--- NOTE | 2022-07-15 13:35 | NUR ---
PATIENT CAME BACK BUT WAS TOLD BY JANET THAT THE PATIENT NEEDS TO BE PICKED UP AGAIN FOR A FOLLOW UP PROCEDURE.
--- NOTE | 2022-07-15 13:50 | NUR ---
PATIENT WAS PICKED UP FOR HIS PROCEDURE. LEFT VIA HOSPITAL BED IN NO ACUTE DISTRESS.
--- NOTE | 2022-07-15 14:30 | NUR ---
PATIENT'S BACK FOR THE COMPLETION OF HIS HIDA SCAN. PATIENT IN NO ACUTE DISTRESS NOTED
[2022-07-15 16:00] VITALS: BP 112/72
[2022-07-15 16:07] LABS: *ANA ANTI-CENTROMERE B AB <0.2 AI (0.0-0.9); *ANA ANTI-DNA(DS) AB, QN <1 IU/mL (0-9); *ANA ANTI-JO-1 <0.2 AI (0.0-0.9); *ANA ANTICHROMATIN ANTIBODY <0.2 AI (0.0-0.9); *ANA RNP ANTIBODIES 0.2 AI (0.0-0.9); *ANA SJOGREN'S ANTI-SS-A <0.2 AI (0.0-0.9); *ANA SJOGREN'S ANTI-SS-B <0.2 AI (0.0-0.9); *ANAANTI-SCLERODERMA-70 AB 0.3 AI (0.0-0.9); *ANASMITH AB <0.2 AI (0.0-0.9)
[2022-07-15] MEDS ORDERED: CITRIC ACID/SODIUM CITRATE (BICITRA)15 ML UDC PO SCH (17:00)
[2022-07-15] MEDS: NEPRO 1,000 ML BOTTLE GT PRN (17:57)
--- NOTE | 2022-07-15 18:27 | NUR ---
RN [facility] TELE CLOSING NOTES: PATIENT IN BED, AWAKE, ALERT ORIENTED X 4. NO RESPIRATORY DISTRESS NOTED THROUGHOUT SHIFT. ON A-FIB WITH HR OF 115 PER TELE MONITOR. REMAINS ON HEPARIN DRIP AT 950 UNITS/HR VIA RIGHT UPPER ARM MIDLINE. IV SITE PATENT WITH NO /S INFILTRATION NOTED. ALSO HAS SALINE LOCK ON RIGHT WRIST, PATENT AND FLUSHES WELL. FEMORAL HD CATH IN PLACE, INTACT, DRESSING CLEAN AND DRY. NGT ON RIGHT NARE, INTACT, IN PLACE WITH NEPRO RUNNING 45 ML/HR, NO RESIDUAL NOTED. UROSTOMY BAG ON RIGHT ABDOMEN, EMPTIED 250 ML OF TEA COLORED URINE. ALL SAFETY MEASURES IMPLEMENTED. REMAINS STABLE THE ENTIRE SHIFT. BED LOCKED AND IN LOWEST POSITION WITH BED ALARM ON. CALL LIGHT WITHIN REACH. WILL ENDORSE TO INCOMING NURSE FOR CONTINUITY OF CARE.
--- NOTE | 2022-07-15 18:40 | NUR ---
PATIENT WAS REPORTED TO HAVE A 4 SECOND RUN OF V-TACH BUT CONVERTED BACK TO A-FIB WITH HR OF 116. PATIENT IS ASYMPTOMATIC, NO C/O CHEST PAIN OR DISCOMFORT.
--- NOTE | 2022-07-15 19:15 | NUR ---
RN OPENING NOTES RECEIVED PATIENT IN BED, ON GOING DIALYSIS WITH DIALYSIS NURSE AT BEDSIDE, AAO X4, O2 VIA NC AT 2L, NO RESPIRATORY DISTRESS NOTED. ON TELE MONITOR A-FIB WITH HR OF 115. IV ACCESS ON LISSETT MIDLINE RUNNING HEPARIN DRIP AT 950 UNITS/HR, RIGHT WRIST #20G S/L, PATENT AND FLUSHES WELL. FEMORAL HD CATH NOTED, INTACT, DRESSING CLEAN AND DRY. NGT ON RIGHT NARE, INTACT WITH NEPRO RUNNING 45 ML/HR, 10 ML RESIDUAL NOTED. UROSTOMY BAG ON RIGHT ABDOMEN, DRAINING TEA COLORED URINE. SAFETY MEASURES IN PLACE: BED LOCKED AND IN LOWEST POSITION WITH BED ALARM ON, CALL LIGHT WITHIN REACH, SIDE RAILS UP X2.
[2022-07-15 20:00] VITALS: BP 102/73
--- NOTE | 2022-07-15 20:40 | NUR ---
RN NOTE DIALYSIS DONE, NO UF. VSS.
[2022-07-15] MEDS: CITRIC ACID/SODIUM CITRATE (BICITRA)15 ML UDC GT SCH (21:36)
[2022-07-16] VITALS: BP 106/77
[2022-07-16] MEDS: MEROPENEM 500 MG in IV NS 0.9% 50 ML IV SCH ×2 (00:41→11:41)
[2022-07-16] MEDS: ALBUTEROL FS 2.5 MG/0.5 ML VIAL.NEB NEB SCH ×5 (03:38→20:09)
[2022-07-16 04:00] VITALS: BP 107/69
[2022-07-16 05:58] LABS: BASOPHILS # (AUTO) 0.1 K/uL (0.0-0.2); BASOPHILS % (AUTO) 0.8 % (0.0-2.0); EOSINOPHILS % (AUTO) 1.8 % (0.0-6.0); HEMATOCRIT 25 % (39-51); HEMOGLOBIN 8.3 g/dL (13.5-17.5); LYMPHOCYTES # (AUTO) 3.1 K/uL (0.8-4.8); LYMPHOCYTES % (AUTO) 22.6 % (20.0-44.0); MEAN CORPUSCULAR HGB CONC 33 g/dl (31.0-36.0); MEAN CORPUSCULAR VOLUME 97 fL (80-96); MONOCYTES # (AUTO) 1.2 K/uL (0.1-1.30); MONOCYTES % (AUTO) 8.9 % (2.0-12.0); NEUTROPHILS # (AUTO) 9.1 K/uL (1.8-8.9); NEUTROPHILS % (AUTO) 65.9 % (43.0-81.0); PLATELET COUNT (AUTO) 104 K/uL (150-450); RED BLOOD CELL COUNT(AUTO) 2.61 MIL/uL (4.5-6.0); WHITE BLOOD COUNT (AUTO) 13.7 K/uL (4.3-11.0)
[2022-07-16 06:08] LABS: BILIRUBIN,DIRECT 12.8 mg/dL (0.0-0.2); BILIRUBIN,TOTAL 16.5 mg/dL (0.2-1.0); POTASSIUM 4.3 mmol/L (3.5-5.1); TOTAL PROTEIN, SERUM 5.5 g/dL (6.4-8.2)
--- NOTE | 2022-07-16 07:15 | NUR ---
RN OPENING NOTES PATIENT ON BED, A & O X4, O2 VIA NC AT 2L, RESPIRATION EVEN AND UNLABORED, . ON TELE MONITOR A-FIB WITH HR OF 109. IV ACCESS ON LISSETT MIDLINE RUNNING HEPARIN DRIP AT 950 UNITS/HR, RIGHT WRIST #20G S/L, PATENT AND FLUSHES WELL. FEMORAL HD CATH NOTED, INTACT, DRESSING CLEAN AND DRY. NGT ON RIGHT NARE, INTACT WITH NEPRO RUNNING 45 ML/HR, 10 ML RESIDUAL NOTED. UROSTOMY BAG ON RIGHT ABDOMEN, DRAINING TEA COLORED URINE. ASAFETY MEASURES IN PLACE: BED LOCKED AND IN LOWEST POSITION WITH BED ALARM ON, CALL LIGHT WITHIN REACH, SIDE RAILS UP X2. WILL CONTINUE TO MONITOR
--- NOTE | 2022-07-16 07:35 | NUR ---
RN CLOSING NOTES PATIENT IN BED, AAO X4, O2 VIA NC AT 2L, NO RESPIRATORY DISTRESS NOTED. ON TELE MONITOR A-FIB WITH HR OF 103. IV ACCESS ON LISSETT MIDLINE RUNNING HEPARIN DRIP AT 950 UNITS/HR, RIGHT WRIST #20G S/L, PATENT AND FLUSHES WELL. FEMORAL HD CATH NOTED, INTACT, DRESSING CLEAN AND DRY. NGT ON RIGHT NARE, INTACT WITH NEPRO RUNNING 45 ML/HR, 10 ML RESIDUAL NOTED. UROSTOMY BAG ON RIGHT ABDOMEN, DRAINING TEA COLORED URINE. ALL DUE MEDS WERE GIVEN AND NEEDS ATTENDED. SAFETY MEASURES IN PLACE: BED LOCKED AND IN LOWEST POSITION WITH BED ALARM ON, CALL LIGHT WITHIN REACH, SIDE RAILS UP X2. ENDORSED TO AM NURSE FOR MARY
--- NOTE | 2022-07-16 07:40 | NUR ---
DR. GAO NOTIFIED OF PATIENT'S HR OF A-FIB IN 120'S AT TIMES AND CHECKED THE PATIENT.
[2022-07-16] MEDS: PANTOPRAZOLE 40 MG/PACK PACK GT SCH (07:42)
[2022-07-16 08:00] VITALS: BP 90/65
[2022-07-16] MEDS: CARVEDILOL 3.125 MG TABLET NG SCH ×2 (09:00→21:38)
[2022-07-16] MEDS: CITRIC ACID/SODIUM CITRATE (BICITRA)15 ML UDC GT SCH ×4 (09:05→21:38)
--- NOTE | 2022-07-16 09:25 | NUR ---
PHYSICAL THERAPIST JOEY CAME BY TO ASSESS PATIENT AND PATIENT WAS ONLY ABLE TO SIT ON THE EDGE OF THE BED.
[2022-07-16] MEDS: HEPARIN INFUSION/D5W 500 ML IV PRN (10:14)
[2022-07-16 12:00] VITALS: BP 100/71
--- NOTE | 2022-07-16 13:30 | NUR ---
PATIENT FINISHED HIS DIALYSIS, NO FLUID REMOVED, RETACRIT WAS ADMINISTERED TO THE PATIENT EARLIER, PLEASE SEE EMAR DOCUMENTATION.
[2022-07-16] MEDS: DIGOXIN ELIX UDC 0.25 MG/5 ML UDC GT SCH (14:16)
[2022-07-16] MEDS: NEPRO 1,000 ML BOTTLE GT PRN (14:28)
[2022-07-16 16:00] VITALS: BP 112/81
--- NOTE | 2022-07-16 18:37 | NUR ---
RN CLOSING NOTES PATIENT ON BED, AO X4, O2 VIA NC AT 2L, NO RESPIRATORY DISTRESS NOTED. ON TELE MONITOR A-FIB WITH HR OF 128, IV ACCESS ON LISSETT MIDLINE RUNNING HEPARIN DRIP AT 950 UNITS/HR, RIGHT WRIST #20G S/L, PATENT AND FLUSHES WELL. FEMORAL HD CATH NOTED, INTACT, DRESSING CLEAN AND DRY. NGT ON RIGHT NARE, INTACT WITH NEPRO RUNNING 45 ML/HR, 10 ML RESIDUAL NOTED. UROSTOMY BAG ON RIGHT ABDOMEN, DRAINING TEA COLORED URINE. HD DONE TODAY WITH 0 FLUIDS REMOVED. ALL DUE MEDS WERE GIVEN AND NEEDS ATTENDED. SAFETY MEASURES IN PLACE: BED LOCKED AND IN LOWEST POSITION WITH BED ALARM ON, CALL LIGHT WITHIN REACH, SIDE RAILS UP X2. ENDORSED TO INCOMING NURSE FOR CONTINUITY OF CARE
[2022-07-16 20:00] VITALS: BP 115/77
--- NOTE | 2022-07-16 20:00 | NUR ---
CAMERA TUNING ENGINEER OPENING NOTES: RECEIVED PATIENT AWAKE IN BED, BED IN LOW POSITION CALL LIGHTS WITHIN REACH, NO COMPLAIN OF PAIN AND DISCOMFORT AT THIS TIME, ON O2 INHALATION AT 2LPM VIA NASAL CANNULA, PATIENT ON NGT WITH ONGOING NEPRO @45ML/HR INFUSING WELL, PATIENT WITH IV LINE AT [place] WITH ONGOING HEPARIN [id number] BASELINE UPON RECEIVED AND RIGFHT WRIST 320 SL, PATIENT ON TELE MONITOR- AFIB 99, NO SYMPTOMS WAS OBSERVED, WITH PT INR @57.5, INFUSING WELL, WITH RIGHT FEMORAL HD, INTACT NO BLEEDING WAS OBSERVED, PATIENT KEPT CLEAN AND DRY ALL NEEDS MET WILL CONTINUE TO MONITOR.
--- NOTE | 2022-07-16 20:30 | NUR ---
RN NOTES: FOR HEPARIN DRIP RECEIVED WITH BASELINE OF 950 UNITS/HR OR AT 19ML/HR, UNABLE TO CALCULATE MY INITIAL BASE INTAKE DUE TO INCOMPLETE DATA FROM PREVIOUS SHIFT.
[2022-07-17] VITALS: BP 106/70
[2022-07-17] MEDS: ALBUTEROL FS 2.5 MG/0.5 ML VIAL.NEB NEB SCH ×6 (00:06→23:13)
[2022-07-17] MEDS: MEROPENEM 500 MG in IV NS 0.9% 50 ML IV SCH ×2 (00:32→13:24)
[2022-07-17 04:00] VITALS: BP 125/75
--- NOTE | 2022-07-17 04:43 | NUR ---
RN NOTES: PATIENT WAS NOTED WITH EPISODE OF [facility], NOTIFIED HOSPITALIST AND ORDER TO GET MAGNESIUM LEVEL IN AM NOTED AND CARRY OUT, PATIENT CARDIAC MONITORING WAS BACK TO BASELINE AFIB NO COMPLAIN OF PAIN AND DISCOMFORT WILL CONTINUE TO MONITOR.
[2022-07-17 06:07] LABS: BASOPHILS % (AUTO) 0.2 % (0.0-2.0); EOSINOPHILS % (AUTO) 2.1 % (0.0-6.0); HEMATOCRIT 26 % (39-51); HEMOGLOBIN 8.4 g/dL (13.5-17.5); LYMPHOCYTES % (AUTO) 15.9 % (20.0-44.0); MEAN CORPUSCULAR HGB CONC 33 g/dl (31.0-36.0); MEAN CORPUSCULAR VOLUME 98 fL (80-96); MONOCYTES # (AUTO) 1.3 K/uL (0.1-1.30); MONOCYTES % (AUTO) 10.2 % (2.0-12.0); NEUTROPHILS # (AUTO) 8.8 K/uL (1.8-8.9); NEUTROPHILS % (AUTO) 71.6 % (43.0-81.0); PLATELET COUNT (AUTO) 98 K/uL (150-450); RED BLOOD CELL COUNT(AUTO) 2.63 MIL/uL (4.5-6.0); WHITE BLOOD COUNT (AUTO) 12.3 K/uL (4.3-11.0)
--- NOTE | 2022-07-17 06:30 | NUR ---
Report communicate to the on coming nurse. Patient is resting in room. No acute respiratory distress observed. Patient tolerated well all of his meds. No S/S of adverse reaction. IV sites are patents, dry, no rash; redness and drainage observed at the IV site. Will continue to monitor patient for safety.
--- NOTE | 2022-07-17 06:32 | NUR ---
TEACHER OF THE DEAF/HARD OF HEARING CLOSING NOTES: PATIENT SLEEP IN BED COMFORTABLY, AROUSABLE TO VERBAL STIMULI, BED IN LOW POSITION CALL LIGHTS WITHIN REACH, NO COMPLAIN OF PAIN AND DISCOMFORT AT THIS TIME, ON TELE [id number], HOB AT 45 DEGREE ON NGT OF NEPRO@45ML/HR INFUSING WELL, PATIENT HAS UROSTOMY TUBE WITH 150 CC URINE OUTPUT, ON O2 INHALATION AT 2LPM SATURATING WELL,WITH RIGHT FEMORAL HD CATH CLEAN NO BLEEDING NOTED PATIENT KEPT CLEAN AND DRY ALL NEEDS MET ENDORSE TO INCOMING SHIFT.
[2022-07-17 06:55] LABS: CALCIUM, SERUM 8.3 mg/dL (8.5-10.1); CREATININE 5.2 mg/dL (0.6-1.3); PHOSPHORUS 5.9 mg/dL (2.5-4.9); POTASSIUM 4.1 mmol/L (3.5-5.1)
--- NOTE | 2022-07-17 06:56 | NUR ---
RN NOTES: FOR HEPARIN DRIP APTT-58, NO CHANGES ON HEPARIN DRIP PER SCHEDULE,
[2022-07-17 08:00] VITALS: BP 108/80
[2022-07-17] MEDS: PANTOPRAZOLE 40 MG/PACK PACK GT SCH (09:16)
[2022-07-17] MEDS: CITRIC ACID/SODIUM CITRATE (BICITRA)15 ML UDC GT SCH ×4 (09:16→21:20)
[2022-07-17] MEDS: CARVEDILOL 3.125 MG TABLET NG SCH ×2 (09:29→21:25)
[2022-07-17 11:31] LABS: BILIRUBIN,DIRECT 5.3 mg/dL (0.0-0.2); TOTAL PROTEIN, SERUM 5.8 g/dL (6.4-8.2)
[2022-07-17 12:00] VITALS: BP 114/64
[2022-07-17 12:01] LABS: MAGNESIUM 2.1 mg/dL (1.8-2.4)
[2022-07-17] MEDS: DIGOXIN ELIX UDC 0.25 MG/5 ML UDC GT SCH (15:33)
[2022-07-17 16:00] VITALS: BP 103/76
[2022-07-17 16:12] LABS: BAND % (MANUAL) 5 % (0.0-5.0); EOSINOPHILS % (MANUAL) 3 % (0-4); LYMPHOCYTES % (MANUAL) 18 % (16-48); METAMYELOCYTES % 1 % (0-0); MONOCYTES % (MANUAL) 6 % (0-11.0); NEUTROPHILS % (MANUAL) 67 (42-76)
[2022-07-17] MEDS: HEPARIN INFUSION/D5W 500 ML IV PRN (17:50)
[2022-07-17 20:00] VITALS: BP 114/69
[2022-07-18] VITALS: BP 99/68
--- NOTE | 2022-07-18 00:24 | NUR ---
RN NOTE REPORT GIVEN TO HERBIE RUBY FOR CONTINUATION OF CARE.
[2022-07-18] MEDS: MEROPENEM 500 MG in IV NS 0.9% 50 ML IV SCH ×2 (00:30→13:04)
--- NOTE | 2022-07-18 00:30 | NUR ---
SERICULTURE TEACHER OPENING NOTES RECEIVED PT FROM [facility]. PT AWAKE WATCHING TV AT THIS TIME. A/O X4, SLOVENIAN SPEAKING. ON O2 2L VIA NC WITH NO S/S OF SOB OR DISTRESS. DENIES PAIN AT THIS TIME. ON TELE [id number], HOB AT 45 DEGREE ON NGT OF NEPRO@45ML/HR INFUSING WELL. PATIENT HAS UROSTOMY TUBE INTACT. RIGHT FEMORAL HD CATH NOTED, NO BLEEDING OBSERVED. IV ACCESS LISSETT ML INTACT, RUNNING HEPARIN DRIP, APTT-58, NO CHANGES ON HEPARIN DRIP PER SCHEDULE. R WRIST #20G SL. SAFETY PRECAUTIONS IN PLACE: BED LOCKED AND IN LOW POSITION, BED ALARM ON, SIDE RAILS UP X3, CALL LIGHT AND TRAY TABLE WITHIN REACH. WILL CONTINUE TO MONITOR AND ASSIST.
--- NOTE | 2022-07-18 02:07 | NUR ---
0207 Patient noted to have runs of V tach 17 beats, immediately assessed patient, he's watching TV. No c/o chest pain of any discomfort when asked. Vital signs taken as follows: BP 111/78, HR 85 A-fib. GILLIAN Lilly made aware and updated on latest labs with no order given at this time. Patient being closely monitored.
[2022-07-18] MEDS: ALBUTEROL FS 2.5 MG/0.5 ML VIAL.NEB NEB SCH ×3 (03:21→10:58)
[2022-07-18 04:00] VITALS: BP 113/66
[2022-07-18 05:57] LABS: BASOPHILS % (AUTO) 0.3 % (0.0-2.0); EOSINOPHILS % (AUTO) 2.9 % (0.0-6.0); HEMATOCRIT 26 % (39-51); HEMOGLOBIN 8.3 g/dL (13.5-17.5); LYMPHOCYTES # (AUTO) 1.8 K/uL (0.8-4.8); LYMPHOCYTES % (AUTO) 18.6 % (20.0-44.0); MEAN CORPUSCULAR HGB CONC 32 g/dl (31.0-36.0); MEAN CORPUSCULAR VOLUME 101 fL (80-96); MONOCYTES % (AUTO) 10.6 % (2.0-12.0); NEUTROPHILS # (AUTO) 6.6 K/uL (1.8-8.9); NEUTROPHILS % (AUTO) 67.6 % (43.0-81.0); PLATELET COUNT (AUTO) 106 K/uL (150-450); RED BLOOD CELL COUNT(AUTO) 2.57 MIL/uL (4.5-6.0); WHITE BLOOD COUNT (AUTO) 9.7 K/uL (4.3-11.0)
[2022-07-18 06:32] LABS: CALCIUM, SERUM 9.1 mg/dL (8.5-10.1); CREATININE 4.6 mg/dL (0.6-1.3); MAGNESIUM 2.3 mg/dL (1.8-2.4); PHOSPHORUS 5.3 mg/dL (2.5-4.9)
--- NOTE | 2022-07-18 06:43 | NUR ---
BASE PLY HAND CLOSING NOTES PT IN BED, WATCHING TV AT THIS TIME. A/O X4, LAO SPEAKING WITH SOME [place]. STABLE ON O2 2L VIA NC WITH NO S/S OF SOB OR DISTRESS. DENIES PAIN AT THIS TIME. ON TELE MONITOR-AFIB WITH PVC'S 90, HOB AT 45 DEGREE ON NGT OF NEPRO@45ML/HR INFUSING WELL. PATIENT HAS UROSTOMY TUBE INTACT WITH 200 ML OF URINE OUTPUT. RIGHT FEMORAL HD CATH NOTED, NO BLEEDING OBSERVED. IV ACCESS LISSETT ML INTACT, RUNNING HEPARIN DRIP, APTT-58, NO CHANGES ON HEPARIN DRIP PER SCHEDULE. R WRIST #20G SL. ALL CARE PROVIDED AND MEDS TOLERATED WELL. SAFETY PRECAUTIONS MAINTAINED: BED LOCKED AND IN LOW POSITION, BED ALARM ON, SIDE RAILS UP X3, CALL LIGHT AND TRAY TABLE WITHIN REACH. WILL ENDORSE MARY TO DAY SHIFT NURSE.
[2022-07-18 07:53] LABS: ALBUMIN 2.2 g/dL (3.4-5.0); BILIRUBIN,DIRECT 3.9 mg/dL (0.0-0.2); BILIRUBIN,TOTAL 5.2 mg/dL (0.2-1.0)
[2022-07-18 08:00] VITALS: BP 120/81
--- NOTE | 2022-07-18 08:11 | NUR ---
CHANNELING MACHINE OPERATOR NOTE PATIENT IN BED , ALERT, ORIENTED ON 2L NC NO SOB NOTED AT THIS TIME, ON TELE MONITOR AFIB HR 93, RT NARE N G TUBE IN PLACE, ON N G TUBE FEEDING ORDERED, KEEP HOB ELEVATED LISSETT ML IN PLACE , ON HEPARIN DRIP ORDERED AT 950 UNITS PER HOUR , PTT 50.2 PER HOSPAL PROTOCOL ,WILL CONT AT RATE 950 UNITS PER HOUR , RT WRIST HL IN PLCE, RT FEMORAL HD CATH IN PLACE , BED IN LOWEST AND LOCKED POSITION ,CALL LIGHT WITHIN REACH, SAFETY MEASURE PROVIDED
--- NOTE | 2022-07-18 09:00 | NUR ---
director telemetry not pt done as ordered able to stand up with max assistance
[2022-07-18] MEDS: PANTOPRAZOLE 40 MG/PACK PACK GT SCH (09:44)
[2022-07-18] MEDS: CARVEDILOL 3.125 MG TABLET NG SCH (09:45)
[2022-07-18] MEDS: CITRIC ACID/SODIUM CITRATE (BICITRA)15 ML UDC GT SCH ×2 (09:45→13:04)
--- NOTE | 2022-07-18 10:41 | NUR ---
telegraph service clerk note consent for hd perma cath obtained also per dr kerwin npo after bmp stop heparin drip at 8 am tomorrow
--- NOTE | 2022-07-18 10:48 | NUR ---
telex operator note on hd as ordered
[2022-07-18 12:00] VITALS: BP 114/76
--- NOTE | 2022-07-18 12:30 | NUR ---
television engineering teacher note per trimming caser marla and dr maryann hawkins to transfer to [facility], order carried out
[2022-07-18] MEDS: DIGOXIN ELIX UDC 0.25 MG/5 ML UDC GT SCH (13:04)
--- NOTE | 2022-07-18 13:11 | NUR ---
telecommunications switch technician note hd completed 1l was removed, bp120/78 hr 88
--- NOTE | 2022-07-18 13:50 | NUR ---
telegraphic typewriter mechanic note called to [facility] ,report abilio Kimball rn
[2022-07-18] MEDS ORDERED: HEPARIN SODIUM,PORCINE/PF 50 UNIT/5 ML DISP.SYRIN IV ONE (14:00)
--- NOTE | 2022-07-18 14:15 | NUR ---
supervisor telephone answering service note heparin drip stopped per dr jonelle jackson
[2022-07-18] MEDS ORDERED: HEPARIN SODIUM, PORCINE 1000 UNIT/1 ML VIAL IV ONE ×3 (14:30→15:00)
--- NOTE | 2022-07-18 14:46 | NUR ---
television cameraman note heparin 300o units given iv as ordered time one ,
--- NOTE | 2022-07-18 14:48 | NUR ---
telephone station installer note note ambulance at bedside report given
--- NOTE | 2022-07-18 15:19 | NUR ---
director telehealth note patient transferred to acute hospital with stable conation, report gibe to ambulance crew, iv mid line and rt wrist hl intact and flushed well urostomy bag is emptied , vest life taken by ambulance beloning checked by jorge luis mcintosh,,
[2022-07-18 18:43] LABS: EOSINOPHILS % (MANUAL) 3 % (0-4); LYMPHOCYTES % (MANUAL) 17 % (16-48); MONOCYTES % (MANUAL) 7 % (0-11.0); NEUTROPHILS % (MANUAL) 73 (42-76)
== END 2022-07-18 14:59 | disposition short-term general hospital (02) | DRG 720 ==
LOC: ER 09:06 → TELE 18:17 → TELE1 18:53 → TELE-TD 19:03 → TELE1 07-09 08:47 → ICU 07-11 08:39 → TELE-TD 07-14 18:01 → TELE1 07-16 12:24
PROVIDERS: ADMIT Nurse Practitioner Acute Care; ATTEND Student in an Organized Health Care Education/Training Program
PROC: 05HC33Z Insertion of Infusion Device into Left Basilic Vein, Percutaneous Approach (ICD-10-PCS; principal; 2022-07-09)
PROC: 5A1D70Z Performance of Urinary Filtration, Intermittent, Less than 6 Hours Per Day (ICD-10-PCS; 2022-07-11)
PROC: 06HY33Z Insertion of Infusion Device into Lower Vein, Percutaneous Approach (ICD-10-PCS; 2022-07-11)
PROC: 30233N1 Transfusion of Nonautologous Red Blood Cells into Peripheral Vein, Percutaneous Approach (ICD-10-PCS; 2022-07-14)
DX: A41.9 Sepsis, unspecified organism (principal); J96.01 Acute respiratory failure with hypoxia; I26.99 Other pulmonary embolism without acute cor pulmonale; K72.00 Acute and subacute hepatic failure without coma; I81 Portal vein thrombosis; D69.6 Thrombocytopenia, unspecified; J15.9 Unspecified bacterial pneumonia; E87.1 Hypo-osmolality and hyponatremia; I13.0 Hypertensive heart and chronic kidney disease with heart failure and stage 1 through stage 4 chronic kidney disease, or unspecified chronic kidney disease; I50.32 Chronic diastolic (congestive) heart failure; N17.0 Acute kidney failure with tubular necrosis; I82.412 Acute embolism and thrombosis of left femoral vein; N18.9 Chronic kidney disease, unspecified; R17 Unspecified jaundice; R13.10 Dysphagia, unspecified; I42.9 Cardiomyopathy, unspecified; I25.2 Old myocardial infarction; Z85.51 Personal history of malignant neoplasm of bladder; F17.210 Nicotine dependence, cigarettes, uncomplicated; Z90.6 Acquired absence of other parts of urinary tract; Z90.79 Acquired absence of other genital organ(s); E88.09 Other disorders of plasma-protein metabolism, not elsewhere classified; I25.10 Atherosclerotic heart disease of native coronary artery without angina pectoris; I48.0 Paroxysmal atrial fibrillation; K82.8 Other specified diseases of gallbladder; K86.89 Other specified diseases of pancreas; Z86.73 Personal history of transient ischemic attack (TIA), and cerebral infarction without residual deficits; Z20.822 Contact with and (suspected) exposure to COVID-19; N28.1 Cyst of kidney, acquired; E87.20 Acidosis, unspecified; E87.5 Hyperkalemia; Z79.899 Other long term (current) drug therapy; R73.9 Hyperglycemia, unspecified
CPT/HCPCS: 36410; 36415; 36600; 70450-TC; 70490-TC; 71045-TC; 74181-TC; 76700-TC; 76770-TC; 78226; 80048-TC; 80053-TC; 80061-TC; 80076-TC; 80202-TC; 82140-TC; 82803-TC; 82962-TC; 83516; 83615-TC; 83735-TC; 83880; 84100-TC; 84439-TC; 84443-TC; 84484-TC; 85025-TC; 85378-TC; 85610-TC; 85730-TC; 86225; 86235; 86704; 86705; 86706; 86803; 86850-TC; 87040-TC; 87081-TC; 87340; 87806; 90935-TC; 92526; 92611-TC; 93307-TC; 93970-TC; 93976-TC; 94762-TC; 94799-TC; 97110-TC; 97530-TC; A4216; A4223; A9537; C9113; C9803; G0378; J0282; J0692; J0885; J1160; J1642; J1644; J1650; J1815; J1940; J2185; J2270; J2405; J3370; J3475; J3490; J7030; J7040; J7050; J7060; J7070; P9016; P9047